=== PATIENT | female | born 1935 | race Caucasian/White ===

== ENCOUNTER 2020-02-12 12:31 | Outpatient (CLI) | payer MEDICARE, SELFPAY ==
--- NOTE | 2020-02-12 | ECHO_ITS ---
Patient Info Name: Gemini Blackburn Age: 84 years : 1935 Gender: Female Ht: 62 in Wt: 140 lbs BSA: 1.68 m2 HR: 63 bpm BP: 130 / 74 mmHg Heart Rhythm: Sinus Rhythm Technical Quality: Good Exam Date: 02/12/2020 1:08 PM Exam Location: [facility] Patient Status: Outpatient Admit Date: 02/12/2020 Staff Ordering Physician: Logan Vázquez MD Titrator: Kristofer Sandoval, KOJO, RT Attending Provider: Logan Vázquez MD Referring Physician: Kathie ROMAN; Exam Type: CA echo doppler color flow Study Info Indications Z85.3 - Personal history of malignant neoplasm of breast Complete two-dimensional, color flow and Doppler transthoracic echocardiogram is performed. Summary 1. Left ventricular chamber size and systolic function are normal with no regional wall motion abnormalities with a visually estimated ejection fraction of 60-65%. The biplane EF measurement was 60%. The global longitudinal strain was mildly decreased at-15%, consistent with mild early systolic dysfunction. Borderline criteria for diastolic dysfunction. Moderate left ventricular hypertrophy. 2. Right ventricular chamber dimension is mildly enlarged. 3. No significant valve disease. 4. Normal sinus rhythm. Left Ventricle Left ventricular chamber dimension is normal. Left ventricular systolic function is normal, estimated at 60-65%. There is moderately increased left ventricular wall thickness. Left ventricular septal wall motion is normal. The left ventricular diastolic function is indeterminate. Global longitudinal strain is mildly elevated at 15 %. Left ventricular chamber size and systolic function are normal with no regional wall motion abnormalities with a visually estimated ejection fraction of 60-65%. The biplane EF measurement was 60%. The global longitudinal strain was mildly decreased at-15%, consistent with mild early systolic dysfunction. Borderline criteria for diastolic dysfunction. Moderate left ventricular hypertrophy. Right Ventricle Right ventricular chamber dimension is mildly enlarged. Right ventricular systolic function is normal. Left Atria Left atrial chamber dimension is normal. Right Atria Right atrial chamber dimension is normal. Aortic Valve The aortic valve is trileaflet. There is no aortic valve sclerosis. There is no aortic valve stenosis. There is no aortic valve regurgitation. Pulmonic Valve The pulmonic valve is normal. There is no pulmonic valve stenosis. There is trace pulmonic regurgitation. Mitral Valve The mitral valve has normal leaflets. There is no mitral valve stenosis. There is trace mitral valve regurgitation. Tricuspid Valve The tricuspid valve leaflets are normal. There is no significant tricuspid valve stenosis. There is trace tricuspid valve regurgitation. No pulmonary hypertension, estimated pulmonary arterial systolic pressure is Empty. Pericardium/Pleural The pericardium appears normal. There is no pericardial effusion. Inferior Vena Cava Normal inferior vena cava with >50% collapse upon inspiration consistent with Empty right atrial pressure, 5 mmHg. Aorta The aortic root size at the sinus of Valsalva is mildly dilated. The prox ascending aorta size is normal. Left Ventricular Outflow Tract Name Value Normal LVOT 2D
== END 2020-02-12 12:32 | disposition home or self-care (01) ==
PROVIDERS: PCP Pediatrics; Visit Provider Internal Medicine Hematology & Oncology
DX: C50.411 Malignant neoplasm of upper-outer quadrant of right female breast (principal); Z17.1 Estrogen receptor negative status [ER-]; I51.7 Cardiomegaly
CPT/HCPCS: 93306

== ENCOUNTER 2020-10-08 09:40 | Outpatient (CLI) | payer MEDICARE, SELFPAY ==
--- NOTE | 2020-10-08 | ECHO_ITS ---
Patient Info Name: Gemini Blackburn Age: 85 years : 1935 Gender: Female Ht: 62 in Wt: 140 lbs BSA: 1.68 m2 HR: 49 bpm BP: 151 / 62 mmHg Technical Quality: Good Exam Date: 10/08/2020 10:21 AM Exam Location: [facility] Patient Status: Outpatient Admit Date: 10/08/2020 Staff Ordering Physician: Logan Vázquez MD Sample Stitcher: Jayde Thrasher RDCS Attending Provider: Logan Vázquez MD Referring Physician: Kathie ROMAN; Exam Type: CA echo doppler color flow Study Info Indications - PRE CHEMO Complete two-dimensional, color flow and Doppler transthoracic echocardiogram is performed. Summary 1. Complete two-dimensional, color flow and Doppler transthoracic echocardiogram is performed. 2. Left ventricular chamber dimension is normal. 3. Left ventricular systolic function is normal, estimated at 65-70%. 4. There is mildly increased left ventricular wall thickness. 5. The left ventricular diastolic function is grade I diastolic dysfunction. 6. E/e' 13 is mildly elevated. 7. Global longitudinal strain is normal at about -18.0%. 8. Left atrial chamber dimension is mildly enlarged. 9. Right atrial chamber dimension is mildly enlarged. 10. There is mild tricuspid valve regurgitation. 11. No pulmonary hypertension, estimated pulmonary arterial systolic pressure is 27 mmHg. 12. There is trace pulmonic regurgitation. Left Ventricle E/e' 13 is mildly elevated. Global longitudinal strain is normal at about -18.0%. Left ventricular chamber dimension is normal. Left ventricular systolic function is normal, estimated at 65-70%. There is mildly increased left ventricular wall thickness. The left ventricular diastolic function is grade I diastolic dysfunction. Right Ventricle Right ventricular chamber dimension is normal. Right ventricular systolic function is normal. Left Atria Left atrial chamber dimension is mildly enlarged. Right Atria Right atrial chamber dimension is mildly enlarged. Aortic Valve The aortic valve is trileaflet. There is no aortic valve stenosis. There is no aortic valve regurgitation. Pulmonic Valve There is trace pulmonic regurgitation. Mitral Valve There is no mitral valve stenosis. There is no mitral valve regurgitation. Tricuspid Valve There is mild tricuspid valve regurgitation. No pulmonary hypertension, estimated pulmonary arterial systolic pressure is 27 mmHg. Pericardium/Pleural There is no pericardial effusion. Inferior Vena Cava Normal inferior vena cava with >50% collapse upon inspiration consistent with normal right atrial pressure, 5 mmHg. Aorta The aortic root size at the sinus of Valsalva is normal. Left Ventricular Outflow Tract Name Value Normal LVOT 2D LVOT Diameter 2.0 cm LVOT Doppler LVOT Peak Gradient 4 mmHg LVOT Mean Gradient 2 mmHg LVOT VTI 25 cm LVOT VTI/AV VTI Ratio 1.1 LVOT Stroke Volume 80 ml LVOT CO 12.6 l/min LV
== END 2020-10-08 09:41 | disposition home or self-care (01) ==
LOC: ANHCARD 09:41
PROVIDERS: PCP Pediatrics; Visit Provider Internal Medicine Hematology & Oncology
DX: Z51.11 Encounter for antineoplastic chemotherapy (principal); I36.1 Nonrheumatic tricuspid (valve) insufficiency; I51.7 Cardiomegaly
CPT/HCPCS: 93306

== ENCOUNTER 2024-07-17 11:31 | Outpatient (CLI) | payer MEDICARE, OTHER, SELFPAY ==
[2024-07-17 11:48] LABS: Basophils Percent Auto 0.5 % (0.2-1.2); Eosinophils Absolute Auto 0.1 K/mm3 (0-0.3); Eosinophils Percent Auto 1.4 % (0-4.4); Hematocrit 43.4 % (37.0-47.0); Hemoglobin 14.3 g/dL (12.0-15.0); Immature Granulocyte Absolute 0.01 K/mm3 (0.00-0.031); Immature Granulocyte Percent A 0.2 % (0-0.5); Lymphocytes Absolute Auto 1.52 K/mm3 (0.9-3.2); Lymphocytes Percent Auto 26.5 % (18.3-44.2); Mean Corpuscular HGB Conc 32.9 g/dl (32-36); Mean Corpuscular Hemoglobin 31.2 pg (26-34); Mean Corpuscular Volume 94.6 fl (80-100); Mean Platelet Volume 9.9 fl (7.4-10.4); Monocytes Absolute Auto 0.5 K/mm3 (0.1-0.6); Monocytes Percent Auto 8.9 % (2.6-8.5); Neutrophils Absolute Auto 3.6 K/mm3 (1.3-6.7); Neutrophils Percent Auto 62.5 % (45.5-73.1); Platelet Count Result 302 k/mm3 (150-375); Red Blood Count 4.59 M/mm3 (4.2-5.4); Red Cell Distribution Width 12.6 % (11.5-14.5); White Blood Count 5.7 K/mm3 (4.5-10.0)
[2024-07-17 12:56] LABS: Alanine Aminotransferase 20 U/L (6-35); Albumin Level 4.6 g/dL (3.5-5.1); Alkaline Phosphatase 96 U/L (38-126); Anion Gap 11 mmol/L (4-12); Aspartate Amino Transferase 26 U/L (14-36); Bilirubin,Total 0.6 mg/dL (0.2-1.3); Blood Urea Nitrogen 22 mg/dL (7-17); Calcium 9.8 mg/dL (8.4-10.2); Carbon Dioxide 26 mmol/L (22-30); Chloride 103 mmol/L (98-107); Estimated Glomerular Filt Rate > 60; Glucose 90 mg/dL (65-110); Potassium 4.5 mmol/L (3.4-5.0); Sodium 140 mmol/L (137-145)
[2024-07-19 06:24] LABS: CA 15-3 9 U/mL (<32)
== END 2024-07-17 11:32 | disposition home or self-care (01) ==
LOC: ANHLAB 11:34
PROVIDERS: PCP Pediatrics; Visit Provider Internal Medicine Hematology & Oncology
DX: C50.411 Malignant neoplasm of upper-outer quadrant of right female breast (principal); Z17.1 Estrogen receptor negative status [ER-]
CPT/HCPCS: 36415; 80053; 85025; 86300

== ENCOUNTER 2025-04-21 10:58 | Outpatient (CLI) | payer MEDICARE, SELFPAY ==
--- OUTSIDE RECORDS SUMMARY | 2025-04-21 11:13 | XMS_ITS | Clinical Summary ---
Author Organization [facility] Address [address] [place] [address] Care Team Providers Care Desktop Publishing Associate Name Role Phone Shashank Underwood MD Primary Care Provider Allergies No known active allergies Medications levothyroxine 112 MCG tablet Take 112 mcg by mouth every morning. Active PARoxetine 10 MG tablet paroxetine 10 mg tablet Active Encounters Date Type Department Care Team Description 04/10/2025 10:00 AM CDT - 04/10/2025 11:59 PM T Hospital Encounter [address] [place] [address] Shashank Underwood MD McClenahan, Krystal M, PT Discharge Disposition: Home or Self Care (Routine Discharge) 04/10/2025 Travel 04/06/2025 10:00 AM CDT - 04/06/2025 11:59 PM T Hospital Encounter [address] [place] [address] Shashank Underwood MD Timmermann, Candice P, TILER Discharge Disposition: Home or Self Care (Routine Discharge) 04/06/2025 Travel 04/02/2025 9:56 AM CDT - 04/02/2025 11:59 PM CDT Hospital Encounter [facility] [address] [facility] [place] [address] Shashank Underwood MD Hays, Michelle, TILER Discharge Disposition: Home or Self Care (Routine Discharge) 04/02/2025 Travel 03/27/2025 10:26 AM CDT - 03/27/2025 11:59 PM CDT Hospital Encounter [facility] [address] [facility] [place] [address] Shashank Underwood MD Davidson, Brooke M, TILER Discharge Disposition: Home or Self Care (Routine Discharge) 03/27/2025 Travel 03/24/2025 10:17 AM CDT - 03/24/2025 11:59 PM CDT Hospital Encounter [facility] [address] [facility] [place] [address] Shashank Underwood MD Timmermann, Candice P, TILER Discharge Disposition: Home or Self Care (Routine Discharge) 03/24/2025 Travel 03/20/2025 1:28 PM CDT - 03/20/2025 11:59 PM CDT Hospital Encounter [facility] [address] [facility] [place] [address] Shashank Underwood MD Davidson, Brooke M, TILER Discharge Disposition: Home or Self Care (Routine Discharge) 03/20/2025 Travel 03/18/2025 10:30 AM CDT - 03/18/2025 11:59 PM CDT Hospital Encounter [facility] [address] [facility] [place] [address] Shashank Underwood MD Timmermann, Candice P, TILER Discharge Disposition: Home or Self Care (Routine Discharge) 03/18/2025 Travel 03/13/2025 10:54 AM CDT - 03/13/2025 11:59 PM CDT Hospital Encounter [facility] [address] [facility] [place] [address] Shashank Underwood, Sophia Pike, TILER Back Pain Discharge Disposition: Home or Self Care (Routine Discharge) 03/13/2025 Travel 03/11/2025 2:48 PM CDT - 03/11/2025 11:59 PM CDT Hospital Encounter [facility] [address] [facility] [place] [place] [address] Siefken, MD Fransisco Naidu Krystal M, PT Discharge Disposition: Home or Self Care (Routine Discharge) 03/11/2025 Travel 03/03/2025 11:25 AM CDT - 03/03/2025 11:59 PM CDT Hospital Encounter [facility] [address] [place] [address] Kan Andrade, [employer] 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 Discharge Disposition: Home or Self Care (Routine Discharge) 03/03/2025 Travel from Last 3 Months Social History Tobacco Use Types Packs/Day Years Used Date Smoking Tobacco: Never Smokeless Tobacco: Never Tobacco Cessation:Counseling Given: No Comments:no Alcohol Use Standard Drinks/Week Comments Never 0 (1 standard drink = 0.6 oz pur e alcohol) PHQ-2 Answer Date Recorded PHQ-2 Score - If the patient scores above 3, please move on to questions 3-9 2 03/06/2022 Comments No Sex and Gender Information Value Date Recorded Sex Assigned at Not on file Legal Sex Female 9:28 PM CDT Gender Identity Not on file Sexual Orientation Not on file Last Filed Vital Signs Vital Sign Reading Time Taken Comments Blood Pressure 149/53 03/06/2022 9:50 AM CDT Pulse 51 03/06/2022 9:50 AM CDT Temperature 36.2 C (97.2 F) 03/06/2022 9:50 AM CDT Respiratory Rate 18 03/06/2022 9:50 AM CDT Oxygen Saturation 96% 03/06/2022 9:50 AM CDT Inhaled Oxygen Concentration - - Weight 58.8 kg (129 lb 9.6 oz) 03/06/2022 9:50 A M CDT Height 157.5 cm (5' 2) 03/06/2022 9:50 AM CDT Body Mass Index 23.7 03/06/2022 9:50 AM CDT Plan of Treatment Health Maintenance Due Date Last Done Comments Annual Medicare Wellness Visit 2001 Pneumococcal Vaccine: 50+ Years (2 of 2 - PCV) 10/03/2007 10/03/2006 RSV Immunization or 60+ Years (1 - 1-dose 75+ series) 2011 Zoster Vaccines (2 of 3) 10/22/2011 011, 08/27/2007 COVID-19 Vaccine (2 - 2023-2 5 season) 2024 01/04/2021 DTaP, Tdap and Td Vaccines ( 3 - Td or Tdap) 05/09/2033 05/09/2023, 08/28/2014, 06/02/1998 Meningococcal B Vaccine Aged Out No l onger eligible based on patient's age to complete this topic Meningococcal Vaccine Aged Out No jaky tiffanie eligible based on patient's age to complete this topic RSV Immunizations Under 20 Months Aged Out No longer eligible b ased on patient's age to complete this topic Procedures Procedure Name Priority Date/Time Associated Diagnosis Comments XR SI JOINTS Routine 03/03/2025 12:05 PM CDT Sacro-iliac pain XR PELVIS 1 OR 2 VIEWS Routine 03/03/2025 12:05 PM CDT Sacro-iliac pain XR LUMB SPINE 3V Routine 03/03/2025 12:0 5 PM CDT Sacro-iliac pain from Last 3 Months Results * XR SI JOINTS (03/03/2025 12:05 PM CDT) Anatomical Region Laterality Modality Pelvis Computed Tomogra phy 03/03/2025 12:2 0 PM CDT Impressions 03/03/2025 12:23 PM CDT IMPRESSION: 1. No acute findings Ordered By: KAN ANDRADE Interpreted By: Gracy Ybarra, 03/03/2025 12:20 PM Narrative 03/03/2025 12:23 PM [address]T [address] [place] [address] IMAGING STUDIES: XR SI JOINTS DATE: 03/03/2025 11:48 AM COMPARISON: CT abdomen and pelvis of 02/04/2021 CLINICAL HISTORY: si pain . Fall. FINDINGS: There is no evidence of acute fracture, dislocation, or osseous erosion. Osteopenia limits exam No radiopaque foreign bodies or abnormal soft tissue calcifications noted. Mild degenerative change in both sacroiliac joints. No significant sclerosis. Procedure Note Genaro Ybarra MD - 03/03/[address] [place] [address] IMAGING STUDIES: XR SI JOINTS DATE: 03/03/2025 11:48 AM COMPARISON: CT abdomen and pelvis of 02/04/2021 CLINICAL HISTORY: si pain . Fall. FINDINGS: There is no evidence of acute fracture, dislocation, or osseous erosion.Osteopenia limits exam No radiopaque foreign bodies or abnormal soft tissue calcificationsnoted. Mild degenerative change in both sacroiliac joints. No significantsclerosis. IMPRESSION: 1. No acute findings Ordered By: KAN ANDRADE Interpreted By: Gracy Ybarra, 03/03/2025 12:20 PM Kan Andrade 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 GENERAL IMAGING Final Resu lt * XR PELVIS 1 OR 2 VIEWS (03/03/2025 12:05 PM CDT) Anatomical Region Laterality Modality Pelvis Computed Tomogra phy 03/03/2025 12:1 9 PM CDT Impressions 03/03/2025 12:20 PM CDT IMPRESSION: 1. No acute findings Ordered By: KAN ANDRADE Interpreted By: Gracy bYarra, 03/03/2025 12:19 PM Narrative 03/03/2025 12:20 PM CDT [address] [place] [address] IMAGING STUDIES: XR PELVIS 1 OR 2 VIEWS DATE: 03/03/2025 11:48 AM COMPARISON: November 24, 2013 CLINICAL HISTORY: si pain . Fall FINDINGS: There is no evidence of acute fracture, dislocation, or osseous erosion. Osteopenia limits exam. No radiopaque foreign bodies or abnormal soft tissue calcifications noted. Partially visualized right hip prosthesis is grossly intact. Normal contour to the left femoral head. Mild degenerative change in the left hip and both sacroiliac joints. Procedure Note Genaro Ybarra MD - 03/03/[address] [place] [address] IMAGING STUDIES: XR PELVIS 1 OR 2 VIEWS DATE: 03/03/2025 11:48 AM COMPARISON: November 24, 2013 CLINICAL HISTORY: si pain . Fall FINDINGS: There is no evidence of acute fracture, dislocation, or osseous erosion.Osteopenia limits exam. No radiopaque foreign bodies or abnormal soft tissue calcificationsnoted. Partially visualized right hip prosthesis is grossly intact. Normalcontour to the left femoral head. Mild degenerative change in the left hip and both sacroiliac joints. IMPRESSION: 1. No acute findings Ordered By: KAN ANDRADE Interpreted By: Gracy Ybarra, 03/03/2025 12:19 PM us Kan Andrade 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 GENERAL IMAGING Final Resu lt * XR LUMB SPINE 3V (03/03/2025 12:05 PM CDT) Anatomical Region Laterality Modality Spine Computed Tomogra phy 03/03/2025 12:1 6 PM CDT Impressions 03/03/2025 12:19 PM CDT IMPRESSION: 1. No acute findings. Degenerative changes as above Ordered By: KAN ANDRADE Interpreted By: Gracy Ybarra, 03/03/2025 12:16 PM Narrative 03/03/2025 12:19 PM CDT [address] [place] [address] IMAGING STUDIES: XR LUMB SPINE 3V DATE: 03/03/2025 11:48 AM COMPARISON: CT abdomen of 02/04/2021 CLINICAL HISTORY: si pain . Fall. Pain. FINDINGS: No evidence of acute fracture or dislocation. Osteopenia limits exam Vertebral body heights are grossly well-maintained. Stable loss of disc space height at L2-3 and L4-5. Stable minimal grade 1 anterior spondylolisthesis of L3 on L4. . No paraspinal lesions. Atherosclerotic aorta. Mild levoconvex curvature of mid lumbar spine Procedure Note Genaro Ybarra MD - 03/03/[address] [place] [address] IMAGING STUDIES: XR LUMB SPINE 3V DATE: 03/03/2025 11:48 AM COMPARISON: CT abdomen of 02/04/2021 CLINICAL HISTORY: si pain . Fall. Pain. FINDINGS: No evidence of acute fracture or dislocation. Osteopenia limits exam Vertebral body heights are grossly well-maintained. Stable loss of discspace height at L2-3 and L4-5. Stable minimal grade 1 anterior spondylolisthesis of L3 on L4. . No paraspinal lesions. Atherosclerotic aorta. Mild levoconvex curvature ofmid lumbar spine IMPRESSION: 1. No acute findings. 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 anation Advance Directives and Living Will 11/14/2021 12:00 AM HCPOA Advance Directives and Living Will 11/14/2021 12:00 AM LIVING WILL Advance Directives and Living Will 02/04/2021 12:00 AM HCPOA Advance Directives and Living Will 02/04/2021 12:00 AM LIVING WILL Advance Directives and Living Will 11/12/2020 12:00 AM HCPOA Advance Directives and Living Will 11/12/2020 12:00 AM LIVING WILL Advance Directives and Living Will 12/31/2019 12:00 AM HCPOA Advance Directives and Living Will 12/31/2019 12:00 AM LIVING WILL Advance Directives and Living Will 12/30/2019 12:00 AM HCPOA Advance Directives and Living Will 12/30/2019 12:00 AM LIVING WILL Advance Directives and Living Will 12/23/2019 12:00 AM HCPOA Advance Directives and Living Will 12/23/2019 12:00 AM LIVING WILL Advance Directives and Living Will 12/19/2019 12:00 AM HCPOA Advance Directives and Living Will 12/19/2019 12:00 AM LIVING WILL Advance Directives and Living Will 06/25/2019 12:00 AM HCPOA Advance Directives and Living Will 06/25/2019 12:00 AM LIVING WILL Advance Directives and Living Will 12/24/2018 12:00 AM HCPOA Advance Directives and Living Will 12/24/2018 12:00 AM LIVING WILL Advance Directives and Living Will 10/28/2018 12:00 AM HCPOA Advance Directives and Living Will 10/28/2018 12:00 AM LIVING WILL Advance Directives and Living Will 08/13/2018 12:00 AM HCPOA Advance Directives and Living Will 08/13/2018 12:00 AM LIVING WILL Advance Directives and Living Will 08/09/2018 12:00 AM HCPOA Advance Directives and Living Will 08/09/2018 12:00 AM LIVING WILL Advance Directives and Living Will 07/15/2018 12:00 AM HCPOA Advance Directives and Living Will 07/15/2018 12:00 AM LIVING WILL Advance Directives and Living Will 05/07/2018 12:00 AM HCPOA Advance Directives and Living Will 05/07/2018 12:00 AM LIVING WILL Advance Directives and Living Will 01/04/2018 12:00 AM HCPOA Advance Directives and Living Will 01/04/2018 12:00 AM LIVING WILL Advance Directives and Living Will 10/31/2017 12:00 AM HCPOA Advance Directives and Living Will 10/31/2017 12:00 AM LIVING WILL Advance Directives and Living Will 10/02/2017 12:00 AM HCPOA Advance Directives and Living Will 10/02/2017 12:00 AM LIVING WILL Advance Directives and Living Will 03/21/2017 12:00 AM HCPOA Advance Directives and Living Will 03/21/2017 12:00 AM LIVING WILL Advance Directives and Living Will 01/22/2017 12:00 AM HCPOA Advance Directives and Living Will 01/22/2017 12:00 AM LIVING WILL Advance Directives and Living Will 12/31/2016 12:00 AM HCPOA Advance Directives and Living Will 12/31/2016 12:00 AM LIVING WILL Advance Directives and Living Will 12/08/2016 12:00 AM HCPOA Advance Directives and Living Will 12/08/2016 12:00 AM LIVING WILL Advance Directives and Living Will 12/03/2015 12:00 AM HCPOA Advance Directives and Living Will 12/03/2015 12:00 AM LIVING WILL Advance Directives and Living Will 09/24/2015 12:00 AM HCPOA Advance Directives and Living Will 09/24/2015 12:00 AM LIVING WILL Advance Directives and Living Will 07/07/2015 12:00 AM HCPOA Advance Directives and Living Will 07/07/2015 12:00 AM LIVING WILL Advance Directives and Living Will 10/30/2014 12:00 AM ADVANCED DIRECTIVES Advance Directives and Living Will 10/30/2014 12:00 AM HCPOA Advance Directives and Living Will 10/30/2014 12:00 AM LIVING WILL Advance Directives and Living Will 10/05/2014 12:00 AM ADVANCED DIRECTIVES Advance Directives and Living Will 10/05/2014 12:00 AM HCPOA Advance Directives and Living Will 10/05/2014 12:00 AM LIVING WILL Advance Directives and Living Will 10/02/2014 12:00 AM ADVANCED DIRECTIVES Advance Directives and Living Will 10/02/2014 12:00 AM HCPOA Advance Directives and Living Will 10/02/2014 12:00 AM LIVING WILL Advance Directives and Living Will 10/01/2014 12:00 AM ADVANCED DIRECTIVES Advance Directives and Living Will 10/01/2014 12:00 AM HCPOA Advance Directives and Living Will 10/01/2014 12:00 AM LIVING WILL Advance Directives and Living Will 09/04/2014 12:00 AM ADVANCED DIRECTIVES Advance Directives and Living Will 09/04/2014 12:00 AM HCPOA Advance Directives and Living Will 09/04/2014 12:00 AM LIVING WILL Advance Directives and Living Will 05/25/2014 12:00 AM ADVANCED DIRECTIVES Advance Directives and Living Will 05/25/2014 12:00 AM HCPOA Advance Directives and Living Will 05/25/2014 12:00 AM LIVING WILL Advance Directives and Living Will 05/19/2014 12:00 AM ADVANCED DIRECTIVES Advance Directives and Living Will 05/19/2014 12:00 AM HCPOA Advance Directives and Living Will 05/19/2014 12:00 AM LIVING WILL Advance Directives and Living Will 11/24/2013 12:00 AM ADVANCED DIRECTIVES Advance Directives and Living Will 11/24/2013 12:00 AM HCPOA Advance Directives and Living Will 11/24/2013 12:00 AM LIVING WILL Advance Directives and Living Will 11/19/2013 12:00 AM ADVANCED DIRECTIVES Advance Directives and Living Will 11/19/2013 12:00 AM HCPOA Advance Directives and Living Will 11/19/2013 12:00 AM LIVING WILL Advance Directives and Living Will 08/22/2013 12:00 AM ADVANCED DIRECTIVES Advance Directives and Living Will 08/22/2013 12:00 AM HCPOA Advance Directives and Living Will 08/22/2013 12:00 AM LIVING WILL Advance Directives and Living Will 08/01/2013 12:00 AM ADVANCED DIRECTIVES Advance Directives and Living Will 08/01/2013 12:00 AM HCPOA Advance Directives and Living Will 08/01/2013 12:00 AM LIVING WILL Advance Directives and Living Will 01/17/2013 12:00 AM ADVANCED DIRECTIVES Advance Directives and Living Will 01/17/2013 12:00 AM HCPOA Advance Directives and Living Will 01/17/2013 12:00 AM LIVING WILL Advance Directives and Living Will 01/07/2013 12:00 AM ADVANCED DIRECTIVES Advance Directives and Living Will 01/07/2013 12:00 AM HCPOA Advance Directives and Living Will 01/07/2013 12:00 AM LIVING WILL Advance Directives and Living Will 01/06/2013 12:00 AM ADVANCED DIRECTIVES Advance Directives and Living Will 01/06/2013 12:00 AM HCPOA Advance Directives and Living Will 01/06/2013 12:00 AM LIVING WILL Advance Directives and Living Will 12/02/2012 12:00 AM HCPOA Advance Directives and Living Will 12/02/2012 12:00 AM LIVING WILL Advance Directives and Living Will 12/02/2012 12:00 AM HCPOA Advance Directives and Living Will 12/02/2012 12:00 AM LIVING WILL Advance Directives and Living Will 11/30/2012 12:00 AM HCPOA Advance Directives and Living Will 11/30/2012 12:00 AM LIVING WILL Advance Directives and Living Will 08/07/2012 12:00 AM HCPOA Advance Directives and Living Will 08/07/2012 12:00 AM LIVING WILL Advance Directives and Living Will 07/24/2012 12:00 AM HCPOA Advance Directives and Living Will 07/24/2012 12:00 AM LIVING WILL Advance Directives and Living Will 06/01/2012 12:00 AM HCPOA Advance Directives and Living Will 06/01/2012 12:00 AM LIVING WILL Advance Directives and Living Will 06/01/2012 12:00 AM HCPOA Advance Directives and Living Will 06/01/2012 12:00 AM LIVING WILL Advance Directives and Living Will 03/02/2012 12:00 AM HCPOA Advance Directives and Living Will 03/02/2012 12:00 AM LIVING WILL Advance Directives and Living Will 01/20/2012 12:00 AM HCPOA Advance Directives and Living Will 01/20/2012 12:00 AM LIVING WILL Advance Directives and Living Will 12/20/2011 12:00 AM ADVANCED DIRECTIVES Advance Directives and Living Will 12/20/2011 12:00 AM HCPOA Advance Directives and Living Will 12/20/2011 12:00 AM LIVING WILL Care Teams Desktop Publishing Associate Relationship Specialty Start Date End Date Shashank Underwood MD [address] [place] [address] PCP - General PEDIATRICS 02/09/22
--- OUTSIDE RECORDS SUMMARY | 2025-04-21 11:14 | XMS_ITS | Data Portability ---
Author Organization JAYDE - [facility], PXin, [facility] Address [address] [place] [address] Assessment Encounter Date Assessment Date Assessment LastModified by Organization Details LastModified Time 03/09/2023 03/09/2023 Fill thyroid medication when blood work is back. [email or web address] Not available 03/09/2023 13:30:59 03/14/2024 03/14/2024 GI Effects Stool test - one day test Britni NutriEval test - urine test only. No blood test [email or web address] Not available 03/14/2024 14:07:56 Plan of Treatment Reminders Order Date Submit Date Provider Last Modified By Organization Details Last Modified Time Details Appointments None recorded. Lab vitamin D, 25-hydroxy, total, serum 2024 025 [employer] [facility], [address], [place], [address], 5 08:46:14 CMP, serum or plasma 2024 025 [facility] [address], [place], [address], 5 08:46:14 CBC w/ auto diff 2024 025 [facility], [place], [address], 5 08:46:14 lipid panel, serum 2024 025 [facility], [place], [address], 5 08:46:14 CRP, high sensitivity , serum or plasma 2024 025 [employer] [facility], [address], [address], [place], [address], 5 08:46:14 TSH, serum or plasma 2024 025 [employer] [facility], [address], [place], [address], 5 08:46:14 T4, free, serum 2024 025 [employer] [facility], [facility] [address], [place], [address], 5 08:46:14 T3, free, serum or plasma 2024 025 [facility], [facility] [address], [address], [place], [address], 5 08:46:14 vitamin B12 + folate, serum or blood 2024 025 Service Seeking [facility], [facility] [address], [address], [place], [address], 5 08:46:14 iron + TIBC + ferritin, serum 2023 024 Service [facility], [address], [address], [place], [address], 4 07:26:32 vitamin D, 25-hydroxy, total, serum 2023 024 [employer] [facility], [address], [place], [address], 4 07:26:33 lipid panel, serum 2023 024 amalic [facility], [address], [address], [place], [address], 4 07:26:32 CRP, high sensitivity , serum or plasma 2023 024 [facility]alic [facility], [address], [address], [place], [address], 4 07:26:33 CMP, serum or plasma 2023 024 [facility]alic [facility], [address], [address] [place], [place], [address], 4 07:26:33 TSH, serum or plasma 2023 024 amalic Not available 4 07:26:32 T4, free, serum 2023 024 amalic Not available 4 07:26:32 T3, free, serum or plasma 2023 024 amalic Not available 4 07:26:32 TSH, serum or plasma 2022 023 [employer] [facility], [address], [address], [place], [address], 3 09:53:32 T4, free, serum 2022 023 [employer] [facility], [address], [address], [place], [address], 3 09:53:33 T3, free, serum or plasma 2022 023 [employer]Codota [facility], [address], [address], [place], [address], 3 22:01:17 lipid panel, serum 2022 023 [employer] [facility], [address], [address], [place], [address], 3 22:01:17 CRP, high sensitivity , serum or plasma 2022 023 [employer] [facility], [address], [address] [address], [place], [address], 3 09:53:31 omega 3 fatty acids, quantitativ e, serum (OBS) 2022 023 [facility], [address], [address], [place], [address], 3 22:01:17 omega 6 fatty acids, quantitativ e, serum (OBS) 2022 023 [facility], [address], [address] [address], [place], [address], 3 22:01:17 vitamin B12 + folate, serum or blood 2022 023 [employer] [facility], [address], [place], [address], 3 09:53:34 iron + TIBC + ferritin, serum 2022 023 [employer] [facility], [address], [address], [place], [address], 3 09:53:34 vitamin B12 + folate, serum or blood 2021 022 [employer] [facility], [address], [place], [address], 2 03:55:20 iron + TIBC + ferritin, serum 2021 022 [employer] [facility], [address], [place], [address], 2 03:55:20 lipid panel, serum 2021 [facility], [address], [address], [place], [address], 08:08:40 CBC w/ auto diff 2021 [facility], [address], [address], [place], [address], 03:55:20 CMP, serum or plasma 2021 [facility], [address], [address], [place], [address], 03:55:18 CRP, high sensitivity , serum or plasma 2021 [employer] [facility], [address], [address] [place], [place], [address], 03:55:17 vitamin D, 25-hydroxy, total, serum 2021 [employer] [facility], [address], [address], [place], [address], 03:55:21 HbA1c (hemoglobin A1c), blood 2021 [facility], [address], [address] [place], [place], [address], 03:55:21 TSH, serum or plasma 2021 [employer] [facility], [address], [address], [place], [address], 03:55:18 T4, free, serum 2021 [facility], [address], [place], [address], 06/10/202 2 03:55:19 T3, free, serum or plasma 2021 022 [facility] [facility], [address], [place], [address], 2 08:08:40 TSH, serum or plasma 2020 021 YONI Not available 03:44:01 T3, free, serum or plasma 2020 021 smimms Not available 09:39:37 T4, free, serum 2020 YONI Not available 03:44:02 lipid panel, serum 2020 021 smimms Not available 09:39:38 CMP, serum or plasma 2020 021 YONI Not available 03:44:00 hemoglobin A1c, QN, blood 2020 021 smimms Not available 09:39:38 C reactive protein, QN, serum or plasma 2020 021 smimms Not available 09:39:38 iron + TIBC + ferritin, serum 2020 021 YONI Not available 03:44:01 vitamin B12 + folate, serum or blood 2020 021 YONI Not available 03:44:02 Referral None recorded. Procedures None recorded. Surgeries None recorded. Imaging None recorded. Medication Orders None recorded. Patient TargetsNo targets recorded. Patient Instructions Encounter Date Encounter Id Patient Instructions Last Modified By Organization Details Last Modified Time 02/25/2021 [id number] Orthobiotic 1 capsule daily Vitalzymes Chewable 1 with each meal cwillbrand Not available 02/25/2021 12:37:06 03/30/2022 [id number] Reduce Magnesium capsule to 1 daily in the evening Increase folate to 1000mcg daily in the morning Vital Proteins Collagen Peptides - 1 scoop daily Continue GrapeSeed Extract 300mg daily cwillbrand Not available 03/30/2022 12:59:43 03/09/2023 [id number] Yvonne Aparicio White - Classical Stretch on PBS every morning cwillbrand Not available 03/09/2023 13:20:22 04/09/2025 [id number] Biocidin 5 drops twice daily until the bottle is finished. Switch your magnesium at lunch to Reacted Multimineral 2 with lunch. Continue with Magnesium 2 in the morning cwillbrand Not available 04/09/2025 15:10:40 Reason for Referral None Reported. Results Created Date Observation Date Name Description Value Unit Range Abnormal Flag Note LastModifiedBy Organization Detail LastModifiedTime 02/26/20 21 02/25/2021 CRP, high sensi tivit y, serum or plasm a hscrp 1.38 mg/L <=2.99 Risk Accor ding To AHA/C DC Guide lines : < 1.0 mg/L Low Cardi ovasc ular Risk 1.0-3 .0 mg/L [place] Cardi ovasc ular Risk > 3.0 mg/L High Cardi ovasc ular Risk > 10.0 mg/L Acute Infla mmati on Not Available [facility] (Lab) [address], [place], [address], 02/26/2021 03:43:59 02/26/2002/25/2021 lipid panel , blood total cholesterol 217 mg/dL 0-199 high Not Available [facility] (Lab) [address] [place], [address], 02/26/2021 03:44:00 02/26/2002/25/2021 lipid panel , blood triglyceride s 73 mg/dL 0-150 NCEP Refer ence Value s for Trigl yceri coty: Alaina l: <150 mg/dL Borde rline High: 150 - 199 mg/dL High: 200 - 499 mg/dL Very High: >/= 500 mg/dL Not Available [facility] (Lab) [address], [place], [address], 02/26/2021 03:44:00 02/26/2002/25/2021 lipid panel , blood HDL cholesterol 73 mg/dL 40-240 Not Available [facility] (Lab) [address], [place], [address], 02/26/2021 03:44:00 02/26/20 21 02/25/2021 lipid panel , blood LDL cholesterol 129 mg/dL 0-99 high Cutof f value s recom deep d by the Natio nal Jessie stero l Educa tion Progr am: HERSON ABLE: Jessie stero l <200 mg/dL LDL <100 mg/dL BORDE RLINE : Jessie stero l 200-2 39 mg/dL LDL 101-1 59 mg/dL HIGHE R RISK: Jessie stero l >240 mg/dL LDL >160 mg/dL , HDL <40 mg/dL Not Available [facility] (Lab) [address], [place], [address], 02/26/2021 03:44:00 02/26/2002/25/2021 lipid panel , blood non-HDL cholesterol 144 mg/dL 0-129 high A reaso nable goal for non-H DL jessie stero l is one that is 30 mg/dL highe r than the LDL jessie stero l goal. Not Available [facility] (Lab) [address], [place], [address], 02/26/2021 03:44:00 02/26/20 21 02/25/2021 lipid panel , blood chol/HDL ratio 3.0 . 0.0-5. 0 Not Available [facility] (Lab) [address] [place], [address], 02/26/2021 03:44:00 02/26/2002/25/2021 CMP, serum or plasm a sodium 142 mmol/ L 136-14 5 Not Available [facility] (Lab) [address] [place], [address], 02/26/2021 03:44:00 02/26/20 21 02/25/2021 CMP, serum or plasm a potassium 4.3 mmol/ L 3.5-5. 3 Not Available [facility] (Lab) [address], [place], [address], 02/26/2021 03:44:00 02/26/20 21 02/25/2021 CMP, serum or plasm a chloride 104 mmol/ L 98-107 Not Available [facility] (Lab) [address] [place], [address], 02/26/2021 03:44:00 02/26/20 21 02/25/2021 CMP, serum or plasm a carbon dioxide 26 mmol/ L 23-31 Not Available [facility] (Lab) [address], [place], [address], 02/26/2021 03:44:00 02/26/20 21 02/25/2021 CMP, serum or plasm a anion gap 12 mmol/ L 8-16 Not Available [facility] (Lab) [address] [place], [address], 02/26/2021 03:44:00 02/26/20 21 02/25/2021 CMP, serum or plasm a blood urea nitrogen 18 mg/dL 8-23 Not Available [facility] (Lab) [address], [place], [address], 02/26/2021 03:44:00 02/26/20 21 02/25/2021 CMP, serum or plasm a creatinine 0.70 mg/dL (based on legal sex) .5-1.2 Not Available [facility] (Lab) [address] [place], [address], 02/26/2021 03:44:00 02/26/2002/25/2021 CMP, serum or plasm a GFR () 97 mL/mi n/1.7 3_m2 60-300 Not Available [facility] (Lab) [address] [place], [address], 02/26/2021 03:44:00 02/26/20 21 02/25/2021 CMP, serum or plasm a GFR (others) 80 mL/mi n/1.7 3_m2 60-300 Not Available [facility] (Lab) [address] [place], [address], 02/26/2021 03:44:00 02/26/20 21 02/25/2021 CMP, serum or plasm a calcium 10.1 mg/dL 8.8-10 .5 Not Available [facility] (Lab) [address], [place], [address], 02/26/2021 03:44:00 02/26/20 21 02/25/2021 CMP, serum or plasm a glucose 84 mg/dL 70-99 Not Available [facility] (Lab) [address] [place], [address], 02/26/2021 03:44:00 02/26/2002/25/2021 CMP, serum or plasm a protein, total 6.8 g/dL 6.0-8. 3 Not Available [facility] (Lab) [address] [place], [address], 02/26/2021 03:44:00 02/26/2002/25/2021 CMP, serum or plasm a albumin 4.7 g/dL 3.5-5. 0 Not Available [facility] (Lab) [address] [place], [address], 02/26/2021 03:44:00 02/26/2002/25/2021 CMP, serum or plasm a ALT 12 units /L 9-43 Not Available [facility] (Lab) [address] [place], [address], 02/26/2021 03:44:00 02/26/2002/25/2021 CMP, serum or plasm a alkaline phosphatase 110 units /L 35-129 Not Available [facility] (Lab) [address] [place], [address], 02/26/2021 03:44:00 02/26/20 21 02/25/2021 CMP, serum or plasm a AST 18 units /L (based on docume nted legal sex) 11-32 Not Available [facility] (Lab) [address], [place], [address], 02/26/2021 03:44:00 02/26/20 21 02/25/2021 CMP, serum or plasm a bilirubin, total 0.6 mg/dL 0.0-1. 0 Not Available [facility] (Lab) [address], [place], [address], 02/26/2021 03:44:00 02/26/20 21 02/25/2021 free T3, quant itati ve, dialy sis serum or plasm a T3, free 2.7 pg/mL 2.0-4. 4 Not Available [facility] (Lab) [address] [place], [address], 02/26/2021 03:44:01 02/26/20 21 02/25/2021 iron + TIBC + pennie tin, serum iron 82 ug/dL (based on docume nted legal sex) 37-145 Not Available [facility] (Lab) [address] [place], [address], 02/26/2021 03:44:01 02/26/20 21 02/25/2021 iron + TIBC + pennie tin, serum transferrin 222 mg/dL 200-36 0 Not Available [facility] (Lab) [address] [place], [address], 02/26/2021 03:44:01 02/26/20 21 02/25/2021 iron + TIBC + pennie tin, serum ferritin 173 NG/mL 13-400 Not Available [facility] (Lab) [address] [place], [address], 02/26/2021 03:44:01 02/26/20 21 02/25/2021 iron + TIBC + pennie tin, serum calculated TIBC 311 ug/dL 250-46 0 Not Available [facility] (Lab) [address] [place], [address], 02/26/2021 03:44:01 02/26/20 21 02/25/2021 iron + TIBC + pennie tin, serum iron saturation 26 % 20-55 Not Available [facility] (Lab) [address] [place], [address], 02/26/2021 03:44:01 02/26/20 21 02/25/2021 TSH, serum or plasm a TSH 0.73 uIU/m L 0.30-5 .00 Not Available [facility] (Lab) [address], [place], [address], 02/26/2021 03:44:01 02/26/20 21 02/25/2021 T4, free, serum T4, free 1.32 NG/dL 0.80-1 .80 Not Available [facility] (Lab) [address] [place], [address], 02/26/2021 03:44:02 02/26/20 21 02/25/2021 vitam in B12 + folat e, serum or blood vitamin B12 969 pg/mL 232-1, 245 Not Available [facility] (Lab) [address] [place], [address], 02/26/2021 03:44:02 02/26/20 21 02/25/2021 vitam in B12 + folat e, serum or blood folate, serum >20.0 NG/mL 5.2-20 high Not Available [facility] (Lab) [address] [place], [address], 02/26/2021 03:44:02 02/26/20 21 02/25/2021 HbA1c (hemo globi n A1c), blood hemoglobin A1C 5.3 % 0-5.6 The Ameri can Diabe sage [employer] iatio n recom mends that a prima ry goal of thera py kate [place] be a HBA1C of < 7% and that physi cians shoul d reeva luate the treat ment regim en in patie nts with HBA1C value s consi stent ly > 8%. <5.7% Alaina l 5.7 - 6.4% Incre ased risk for diabe sage >=6.5 % Diagn ostic of diabe sage <7.0% Goal of thera py >8.0% Actio n sugge sted Not Available [facility] (Lab) [address], [place], [address], 02/26/2021 03:44:03 12/21/19 22 12/21/2021 T3, FREE T3, free 2.8 pg/mL 2.3-4. 2 normal Not Available [facility] [address] [place], [address], 12/21/2021 06:46:40 03/30/20 22 03/30/2022 CRP, HIGH SENSI TIVIT Y (HSCR P) C-reactive protein, high sensitivity 1.38 mg/L 0.00-3 .00 Risk Accor ding To AHA/C DC Guide lines : < 1.0 mg/L Low Cardi ovasc ular Risk 1.0-3 .0 mg/L [place] Cardi ovasc ular Risk > 3.0 mg/L High Cardi ovasc ular Risk > 10.0 mg/L Acute Infla mmati on Not Available [facility] (Lab) [address], [place], [address], 03/31/2022 03:55:16 03/30/20 22 03/30/2022 LIPID PANEL ,AMA (LDL- CALC) total cholesterol 201 mg/dL 0-199 high Not Available [facility] (Lab) [address], [place], [address], 03/31/2022 03:55:17 03/30/20 22 03/30/2022 LIPID PANEL ,AMA (LDL- CALC) triglyceride s 74 mg/dL 0.00-1 50.00 NCEP Refer ence Value s for Trigl yceri coty: Alaina l: <150 mg/dL Borde rline High: 150 - 199 mg/dL High: 200 - 499 mg/dL Very High: >/= 500 mg/dL Not Available [facility] (Lab) [address], [place], [address], 03/31/2022 03:55:17 03/30/20 22 03/30/2022 LIPID PANEL ,AMA (LDL- CALC) HDL cholesterol 71 mg/dL >40 Not Available [facility] (Lab) [address], [place], [address], 03/31/2022 03:55:17 03/30/20 22 03/30/2022 LIPID PANEL ,AMA (LDL- CALC) LDL cholesterol 115 mg/dL 0-99 high Cutof f value s recom deep d by the Natio nal Jessie stero l Educa tion Progr am: HERSON ABLE: Jessie stero l <200 mg/dL LDL <100 mg/dL BORDE RLINE : Jessie stero l 200-2 39 mg/dL LDL 101-1 59 mg/dL HIGHE R RISK: Jessie stero l >240 mg/dL LDL >160 mg/dL , HDL <40 mg/dL Not Available [facility] (Lab) [address] [place], [address], 03/31/2022 03:55:17 03/30/20 22 03/30/2022 LIPID PANEL ,AMA (LDL- CALC) non-HDL cholesterol 130 mg/dL no refere nce range A reaso nable goal for non-H DL jessie stero l is one that is 30 mg/dL highe r than the LDL jessie stero l goal. Not Available [facility] (Lab) [address] [place], [address], 03/31/2022 03:55:17 03/30/20 22 03/30/2022 LIPID PANEL ,AMA (LDL- CALC) chol/HDL ratio 2.8 . 0.0-5. 0 Not Available [facility] (Lab) [address], [place], [address], 03/31/2022 03:55:17 03/30/20 22 03/30/2022 CMP(C OMPRE HENSI VE METAB OLIC PANEL ) sodium 141 mmol/ L 133-14 6 Not Available [facility] (Lab) [address], [place], [address], 03/31/2022 03:55:18 03/30/20 22 03/30/2022 CMP(C OMPRE HENSI VE METAB OLIC PANEL ) potassium 4.3 mmol/ L 3.5-5. 1 Not Available [facility] (Lab) [address], [place], [address], 03/31/2022 03:55:18 03/30/20 22 03/30/2022 CMP(C OMPRE HENSI VE METAB OLIC PANEL ) chloride 104 mmol/ L 98-107 Not Available [facility] (Lab) [address], [place], [address], 03/31/2022 03:55:18 03/30/20 22 03/30/2022 CMP(C OMPRE HENSI VE METAB OLIC PANEL ) carbon dioxide 28 mmol/ L 21-31 Not Available [facility] (Lab) [address], [place], [address], 03/31/2022 03:55:18 03/30/20 22 03/30/2022 CMP(C OMPRE HENSI VE METAB OLIC PANEL ) anion gap 9 mmol/ L 4-13 Not Available [facility] (Lab) [address], [place], [address], 03/31/2022 03:55:18 03/30/20 22 03/30/2022 CMP(C OMPRE HENSI VE METAB OLIC PANEL ) blood urea nitrogen 21 mg/dL 7-25 Not Available [facility] (Lab) [address] [place], [address], 03/31/2022 03:55:18 03/30/20 22 03/30/2022 CMP(C OMPRE HENSI VE METAB OLIC PANEL ) creatinine 0.75 mg/dL 0.60-1 .30 Not Available [facility] (Lab) [address], [place], [address], 03/31/2022 03:55:18 03/30/20 22 03/30/2022 CMP(C OMPRE HENSI VE METAB OLIC PANEL ) egfrcr (CKD-epi 2020) 78 mL/mi n/1.7 3_m2 >=60 Not Available [facility] (Lab) [address], [place], [address], 03/31/2022 03:55:18 03/30/20 22 03/30/2022 CMP(C OMPRE HENSI VE METAB OLIC PANEL ) calcium 10.3 mg/dL 8.3-10 .5 Not Available [facility] (Lab) [address], [place], [address], 03/31/2022 03:55:18 03/30/20 22 03/30/2022 CMP(C OMPRE HENSI VE METAB OLIC PANEL ) glucose 83 mg/dL 70-100 Not Available [facility] (Lab) [address], [place], [address], 03/31/2022 03:55:18 03/30/20 22 03/30/2022 CMP(C OMPRE HENSI VE METAB OLIC PANEL ) protein, total 6.9 g/dL 6.4-8. 3 Not Available [facility] (Lab) [address], [place], [address], 03/31/2022 03:55:18 03/30/20 22 03/30/2022 CMP(C OMPRE HENSI VE METAB OLIC PANEL ) albumin 4.6 g/dL 3.5-5. 0 Not Available [facility] (Lab) [address], [place], [address], 03/31/2022 03:55:18 03/30/20 22 03/30/2022 CMP(C OMPRE HENSI VE METAB OLIC PANEL ) ALT 13 units /L 9-43 Not Available [facility] (Lab) [address], [place], [address], 03/31/2022 03:55:18 03/30/20 22 03/30/2022 CMP(C OMPRE HENSI VE METAB OLIC PANEL ) alkaline phosphatase 93 units /L 34-104 Not Available [facility] (Lab) [address], [place], [address], 03/31/2022 03:55:18 03/30/20 22 03/30/2022 CMP(C OMPRE HENSI VE METAB OLIC PANEL ) AST 18 units /L 13-39 Not Available [facility] (Lab) [address], [place], [address], 03/31/2022 03:55:18 03/30/20 22 03/30/2022 CMP(C OMPRE HENSI VE METAB OLIC PANEL ) bilirubin, total 0.7 mg/dL 0.2-1. 2 Not Available [facility] (Lab) [address] [place], [address], 03/31/2022 03:55:18 03/30/20 22 03/30/2022 TSH TSH 0.65 uIU/m L 0.30-5 .33 Not Available [facility] (Lab) [address] [place], [address], 03/31/2022 03:55:18 03/30/20 22 03/30/2022 T4 FREE T4, free 0.91 NG/dL 0.60-1 .40 Not Available [facility] (Lab) [address] [place], [address], 03/31/2022 03:55:18 03/30/20 22 03/30/2022 FREE T3 T3, free 2.9 pg/mL 2.5-3. 9 Not Available [facility] (Lab) [address], [place], [address], 03/31/2022 03:55:19 03/30/20 22 03/30/2022 PENNIE TIN / IRON / TRANS PENNIE N / TIBC iron 73 ug/dL 40-170 Not Available [facility] (Lab) [address], [place], [address], 03/31/2022 03:55:19 03/30/20 22 03/30/2022 PENNIE TIN / IRON / TRANS PENNIE N / TIBC transferrin 250 mg/dL 200-36 0 Not Available [facility] (Lab) [address], [place], [address], 03/31/2022 03:55:19 03/30/20 22 03/30/2022 PENNIE TIN / IRON / TRANS PENNIE N / TIBC ferritin 117.0 NG/mL 8.0-25 2.0 Not Available [facility] (Lab) [address], [place], [address], 03/31/2022 03:55:19 03/30/20 22 03/30/2022 PENNIE TIN / IRON / TRANS PENNIE N / TIBC TIBC 350 ug/dL 250-45 0 Not Available [facility] (Lab) [address] [place], [address], 03/31/2022 03:55:19 03/30/20 22 03/30/2022 PENNIE TIN / IRON / TRANS PENNIE N / TIBC iron saturation 21 % 20-55 Not Available [facility] (Lab) [address], [place], [address], 03/31/2022 03:55:19 03/30/20 22 03/30/2022 CBC W/DIF F WBC 7.8 10'3/ uL 3.6-10 .2 Not Available [facility] (Lab) [address], [place], [address], 03/31/2022 03:55:20 03/30/20 22 03/30/2022 CBC W/DIF F RBC 4.70 10'6/ uL (based on docume nted legal sex) 4.10-5 .30 Not Available [facility] (Lab) [address], [place], [address], 03/31/2022 03:55:20 03/30/20 22 03/30/2022 CBC W/DIF F HGB 14.0 g/dL (based on docume nted legal sex) 11.9-1 5.8 Not Available [facility] (Lab) [address], [place], [address], 03/31/2022 03:55:20 03/30/20 22 03/30/2022 CBC W/DIF F HCT 45.5 % (based on docume nted legal sex) 37.4-4 8.3 Not Available [facility] (Lab) [address], [place], [address], 03/31/2022 03:55:20 03/30/20 22 03/30/2022 CBC W/DIF F MCV 98.0 fL 82.0-9 9.0 Not Available [facility] (Lab) [address], [place], [address], 03/31/2022 03:55:20 03/30/20 22 03/30/2022 CBC W/DIF F MCH 30.0 pg 27.0-3 3.0 Not Available [facility] (Lab) [address], [place], [address], 03/31/2022 03:55:20 03/30/20 22 03/30/2022 CBC W/DIF F MCHC 31.0 g/dL 32.0-3 6.0 low Not Available [facility] (Lab) [address], [place], [address], 03/31/2022 03:55:20 03/30/20 22 03/30/2022 CBC W/DIF F RDW 13.0 % 11.0-1 5.0 Not Available [facility] (Lab) [address] [facility], [place], [address], 03/31/2022 03:55:20 03/30/20 22 03/30/2022 CBC W/DIF F plt 303 10'3/ uL 150-45 0 Not Available [facility] (Lab) [address] [facility], [place], [address], 03/31/2022 03:55:20 03/30/20 22 03/30/2022 CBC W/DIF F MPV 13.7 fL 9.8-12 .7 high Not Available [facility] (Lab) [address] [facility], [place], [address], 03/31/2022 03:55:20 03/30/20 22 03/30/2022 CBC W/DIF F NRBC's 0.00 % 0 Not Available [facility] (Lab) [address] [facility], [place], [address], 03/31/2022 03:55:20 03/30/20 22 03/30/2022 CBC W/DIF F absolute NRBCs 0.0 10'3/ uL 0 Not Available [facility] (Lab) [address] [facility], [place], [address], 03/31/2022 03:55:20 03/30/20 22 03/30/2022 CBC W/DIF F neutrophils 65.0 % 37.0-7 2.0 Not Available [facility] (Lab) [address], [place], [address], 03/31/2022 03:55:20 03/30/20 22 03/30/2022 CBC W/DIF F lymphocytes 25.0 % 16.0-4 8.0 Not Available [facility] (Lab) [address], [place], [address], 03/31/2022 03:55:20 03/30/20 22 03/30/2022 CBC W/DIF F monocytes 8.0 % 4.0-14 .0 Not Available [facility] (Lab) [address], [place], [address], 03/31/2022 03:55:20 03/30/20 22 03/30/2022 CBC W/DIF F eosinophils 2.0 % 0.0-9. 0 Not Available [facility] (Lab) [address], [place], [address], 03/31/2022 03:55:20 03/30/20 22 03/30/2022 CBC W/DIF F basophils 0.0 % 0.0-2. 0 Not Available [facility] (Lab) [address] [place], [address], 03/31/2022 03:55:20 03/30/20 22 03/30/2022 CBC W/DIF F immature granulocytes 0.0 % no define d refere nce range Not Available [facility] (Lab) [address], [place], [address], 03/31/2022 03:55:20 03/30/20 22 03/30/2022 CBC W/DIF F absolute neutrophils 5.1 10'3/ uL 1.1-6. 0 Not Available [facility] (Lab) [address], [place], [address], 03/31/2022 03:55:20 03/30/20 22 03/30/2022 CBC W/DIF F absolute lymphocytes 2.0 10'3/ uL 0.7-3. 4 Not Available [facility] (Lab) [address], [place], [address], 03/31/2022 03:55:20 03/30/20 22 03/30/2022 CBC W/DIF F absolute monocytes 0.6 10'3/ uL 0.3-1. 0 Not Available [facility] (Lab) [address] [place], [address], 03/31/2022 03:55:20 03/30/20 22 03/30/2022 CBC W/DIF F absolute eosinophils 0.1 10'3/ uL 0.0-0. 6 Not Available [facility] (Lab) [address], [place], [address], 03/31/2022 03:55:20 03/30/20 22 03/30/2022 CBC W/DIF F absolute basophils 0.0 10'3/ uL 0.0-0. 1 Not Available [facility] (Lab) [address], [place], [address], 03/31/2022 03:55:20 03/30/20 22 03/30/2022 CBC W/DIF F absolute immature granulocytes 0.00 10'3/ uL 0.00-0 .10 2021 2:16 AM: P indic ates parti al resul ts on a panel have been relea sed. Addit ional resul ts will follo w. 2021 2:16 AM: This resul t has been final verif ied. No addit ional or noriega ed resul ts are expec stew. Not Available [facility] (Lab) [address], [place], [address], 03/31/2022 03:55:20 03/30/20 22 03/30/2022 VITAM IN B12 / FOLAT E PANEL vitamin B12 640 pg/mL 180-91 4 Alaina l Range : 180-9 14 pg/mL . Indet ermin ate Range : 145-1 80 pg/mL . Defic ient Range : <=145 pg/mL . Not Available [facility] (Lab) [address], [place], [address], 03/31/2022 03:55:20 03/30/20 22 03/30/2022 VITAM IN B12 / FOLAT E PANEL folate, serum >20.0 NG/mL 6.0-20 .0 high Not Available [facility] (Lab) [address], [place], [address], 03/31/2022 03:55:20 03/30/20 22 03/30/2022 VITAM IN D, 25-OH (TOTA L D2/D3 ) vitamin D, 25-hydroxy, total 75.1 NG/mL 30-80 NOTE: Defic iency : <20 ng/mL Insuf ficie ncy: 20-29 ng/mL Optim um Level : 30-80 ng/mL Possi ble Toxic ity: >80 ng/mL Most patie nts with toxic ity have level s >150 ng/mL . Not Available [facility] (Lab) [address], [place], [address], 03/31/2022 03:55:21 03/30/20 22 03/30/2022 HEMOG LOBIN A1C hemoglobin A1C 5.6 % 0-5.6 The Ameri can Diabe sage Assoc iatio n recom mends that a prima ry goal of thera py kate d be a HBA1C of < 7% and that physi cians shoul d reeva luate the treat ment regim en in patie nts with HBA1C value s consi stent ly > 8%. <5.7% Alaina l 5.7 - 6.4% Incre ased risk for diabe sage >=6.5 % Diagn ostic of diabe sage <7.0% Goal of thera py >8.0% Actio n sugge sted Not Available [facility] (Lab) [address], [place], [address], 03/31/2022 03:55:21 03/09/20 23 03/09/2023 CRP, HIGH SENSI TIVIT Y (HSCR P) C-reactive protein, high sensitivity 1.15 mg/L 0.00-3 .00 Risk Accor ding To AHA/C DC Guide lines : < 1.0 mg/L Low Cardi ovasc ular Risk 1.0-3 .0 mg/L [place] Cardi ovasc ular Risk > 3.0 mg/L High Cardi ovasc ular Risk > 10.0 mg/L Acute Infla mmati on Not Available [facility] (Lab) [address], [place], [address], 03/15/2023 09:53:31 03/09/20 23 03/09/2023 LIPID PANEL ,AMA (LDL- CALC) total cholesterol 178 mg/dL 0-199 Not Available [facility] (Lab) [address] [place], [address], 03/15/2023 09:53:32 03/09/20 23 03/09/2023 LIPID PANEL ,AMA (LDL- CALC) triglyceride s 77 mg/dL 0.00-1 50.00 NCEP Refer ence Value s for Trigl yceri coty: Alaina l: <150 mg/dL Borde rline High: 150 - 199 mg/dL High: 200 - 499 mg/dL Very High: >/= 500 mg/dL Not Available [facility] (Lab) [address] [place], [address], 03/15/2023 09:53:32 03/09/2003/09/2023 LIPID PANEL ,AMA (LDL- CALC) HDL cholesterol 62 mg/dL >40 Not Available [facility] (Lab) [address] [place], [address], 03/15/2023 09:53:32 03/09/2003/09/2023 LIPID PANEL ,AMA (LDL- CALC) LDL cholesterol 99 mg/dL 0-99 Cutof f value s recom deep d by the Natio nal Jessie stero l Educa tion Progr am: HERSON ABLE: Jessie stero l <200 mg/dL LDL <100 mg/dL BORDE RLINE : Jessie stero l 200-2 39 mg/dL LDL 101-1 59 mg/dL HIGHE R RISK: Jessie stero l >240 mg/dL LDL >160 mg/dL , HDL <40 mg/dL Not Available [facility] (Lab) [address] [place], [address], 03/15/2023 09:53:32 03/09/20 23 03/09/2023 LIPID PANEL ,AMA (LDL- CALC) non-HDL cholesterol 116 mg/dL no refere nce range A reaso nable goal for non-H DL jessie stero l is one that is 30 mg/dL highe r than the LDL jessie stero l goal. Not Available [facility] (Lab) [address], [place], [address], 03/15/2023 09:53:32 03/09/20 23 03/09/2023 LIPID PANEL ,AMA (LDL- CALC) chol/HDL ratio 2.9 . 0.0-5. 0 On February 13, 2023, [facility] labor atori es noriega ed the equat ion for calcu latin g estim ated low-d ensit y lipop rotei n-cho leste rol (LDL- C) from the Fried farzaneh equat ion to the Melissa n/Hop kins equat ion. This new equat ion is only valid for lipid panel s with trigl yceri coty < 400 mg/dL . Studi es have demon strat ed that this new equat ion will impro ve the accur acy of LDL-C , espec ially in [place] when LDL-C ginette ntrat ions are relat ively low (< 100 mg/dL ), trigl yceri coty are eleva stew, or patie nt is non-f astin g. Refer ences : - Melissa cristina, Carlo Sotomayor, Cornelio Delgadillo , [facility] rosalino bolanos, Thompson Keith, Thompson montenegro, Eric gayle , and Tremaine Valentino . 2013. Comp ariso n of a Novel Metho d vs the Fried farzaneh Equat ion for Estim ating Low-D ensit y Lipop rotei n Jessie stero l Level s from the [place] Lipid Profi peweee. TUCKER: The Journ al of the Ameri can Medic al Assoc iatio n 310 (19): 2060- . - [place] V, Denisse J, Adrian grove A, Teofilo M, Shaunna houston R, Su gro[place] E, Naz gayle RS, Chicho SR, Melissa cristina SS. Fast ing Versu s Nonfa sting and Low-D ensit y Lipop rotei n Jessie stero l Accur acy. Lang duval n. 2017Oct 23;137 (1):1 0-19. Not Available [facility] (Lab) [address], [place], [address], 03/15/2023 09:53:32 03/09/20 23 03/09/2023 TSH TSH 0.06 uIU/m L 0.30-5 .33 low Not Available [facility] (Lab) [address], [place], [address], 03/15/2023 09:53:32 03/09/20 23 03/09/2023 T4 FREE T4, free 1.31 NG/dL 0.60-1 .40 Not Available [facility] (Lab) [address], [place], [address], 03/15/2023 09:53:33 03/09/20 23 03/09/2023 FREE T3 T3, free 2.73 pg/mL 2.50-3 .90 Not Available [facility] (Lab) [address], [place], [address], 03/15/2023 09:53:33 03/09/20 23 03/09/2023 PENNIE TIN / IRON / TRANS PENNIE N / TIBC iron 101 ug/dL 40-170 Not Available [facility] (Lab) [address] [place], [address], 03/15/2023 09:53:34 03/09/20 23 03/09/2023 PENNIE TIN / IRON / TRANS PENNIE N / TIBC transferrin 211 mg/dL 200-36 0 Not Available [facility] (Lab) [address] [place], [address], 03/15/2023 09:53:34 03/09/20 23 03/09/2023 PENNIE TIN / IRON / TRANS PENNIE N / TIBC ferritin 113.9 NG/mL 8.0-25 2.0 Not Available [facility] (Lab) [address], [place], [address], 03/15/2023 09:53:34 03/09/20 23 03/09/2023 PENNIE TIN / IRON / TRANS PENNIE N / TIBC TIBC 295 ug/dL 250-45 0 Not Available [facility] (Lab) [address] [place], [address], 03/15/2023 09:53:34 03/09/20 23 03/09/2023 PENNIE TIN / IRON / TRANS PENNIE N / TIBC iron saturation 34 % 20-55 Not Available [facility] (Lab) [address], [place], [address], 03/15/2023 09:53:34 03/09/20 23 03/09/2023 VITAM IN B12 / FOLAT E PANEL vitamin B12 807 pg/mL 180-91 4 Alaina l Range : 180-9 14 pg/mL . Indet ermin ate Range : 145-1 80 pg/mL . Defic ient Range : <=145 pg/mL . Not Available [facility] (Lab) [address] [place], [address], 03/15/2023 09:53:34 03/09/20 23 03/09/2023 VITAM IN B12 / FOLAT E PANEL folate, serum >20.0 NG/mL 6.0-20 .0 high Not Available [facility] (Lab) [address] [place], [address], 03/15/2023 09:53:34 03/09/20 23 03/09/2023 OMEGA -3 AND -6 FATTY ACIDS (FAST ING) omega 3 (epa+dha) index 4.1 % 1.4-4. 9 Risk: Optim al > 3.2%; Moder ate 2.2-3 .2%; High < 2.2% Cardi ovasc ular event risk categ ory cut point s for Freeman 3 index (opti mal, moder ate, high) are based on quart akna of adult [place] refer ence popul ation . Assoc iatio n betwe en Freeman 3 index and cardi ovasc ular event s is based on Jackson t et al. NEJM. 2002; 346:1 113. Not Available [facility] (Lab) [address], [place], [address], 03/15/2023 09:53:35 03/09/20 23 03/09/2023 OMEGA -3 AND -6 FATTY ACIDS (FAST ING) risk Low The Freeman -3 Index is assoc iated with a low risk of cardi ovasc ular disea se becau se it is in the top popul ation quart ile. The Freeman -3 Index categ ories are based on the top (75th perce ntile ) and botto m (25th perce ntile ) quart kana of the refer ence [facility] . Consu mptio n of foods high in omega -3 fatty acids (EPA and DHA) or suppl ement s conta ining omega -3 fatty acids can incre ase the Freeman -3 Index . Index <2.2: High Index 2.2-3 .2: Moder ate Index >3.2: Optim al Not Available [facility] (Lab) [address], [place], [address], 03/15/2023 09:53:35 03/09/20 23 03/09/2023 OMEGA -3 AND -6 FATTY ACIDS (FAST ING) omega 6/omega 3 ratio 6.0 5.7-21 .3 Not Available [facility] (Lab) [address] [place], [address], 03/15/2023 09:53:35 03/09/20 23 03/09/2023 OMEGA -3 AND -6 FATTY ACIDS (FAST ING) epa/arachido pedro acid ratio 0.1 0.2 or less Not Available [facility] (Lab) [address] [place], [address], 03/15/2023 09:53:35 03/09/20 23 03/09/2023 OMEGA -3 AND -6 FATTY ACIDS (FAST ING) arachidonic acid 7.4 % 5.2-12 .9 Not Available [facility] (Lab) [address], [place], [address], 03/15/2023 09:53:35 03/09/20 23 03/09/2023 OMEGA -3 AND -6 FATTY ACIDS (FAST ING) epa 0.9 % 0.2-1. 5 Not Available [facility] (Lab) [address], [place], [address], 03/15/2023 09:53:35 03/09/20 23 03/09/2023 OMEGA -3 AND -6 FATTY ACIDS (FAST ING) dha 3.2 % 1.2-3. 9 This test was devel oped and its evelio tical perfo rmanc e jazzy cteri stics have been deter mined by [facility] tran . It has not been clear ed or appro jose r by FDA. This assay has been valid ated pursu ant to the CLIA regul ation s and is used for clini brittny purpo ses. Perfo rming Organ izati on Infor matcarmen n: Site ID: EZ Name: [email or web address] dara s/Pedro isaac [facility] , Addre ss: [id number] [address] [facility] [address] Direc tor: Nicki rivera MD,Ph D,BUTCH Not Available [facility] (Lab) [address], [place], [address], 03/15/2023 09:53:35 03/14/20 24 03/14/2024 VITAM IN D, 25-OH (TOTA L D2/D3 ) vitamin D, 25-hydroxy, total 61.7 NG/mL 30.0-1 00.0 Sugge stive of Defic iency : <20 ng/mL Sugge stive of Insuf ficie ncy: 20-29 ng/mL Sugge stive of Suffi cienc y: 30-10 0 ng/mL Sugge stive of Toxic ity: >150 ng/mL Not Available [facility] (Lab) [address], [place], [address], 03/15/2024 06:32:52 03/14/2003/14/2024 CRP, HIGH SENSI TIVIT Y (HSCR P) C-reactive protein, high sensitivity 1.17 mg/L 0.00-3 .00 Risk Accor ding To AHA/C DC Guide lines : < 1.0 mg/L Low Cardi ovasc ular Risk 1.0-3 .0 mg/L [place] Cardi ovasc ular Risk > 3.0 mg/L High Cardi ovasc ular Risk > 10.0 mg/L Acute Infla mmati on DRAWN BY STAFF Not Available [facility] (Lab) [address], [place], [address], 03/15/2024 06:35:16 03/14/20 24 03/14/2024 LIPID PANEL ,AMA (LDL- CALC) total cholesterol 211 mg/dL 0-199 high Not Available [facility] (Lab) [address], [place], [address], 03/15/2024 06:35:17 03/14/2003/14/2024 LIPID PANEL ,AMA (LDL- CALC) triglyceride s 63 mg/dL 0-150 NCEP Refer ence Value s for Trigl yceri coty: Alaina l: <150 mg/dL Borde rline High: 150 - 199 mg/dL High: 200 - 499 mg/dL Very High: >/= 500 mg/dL Not Available [facility] (Lab) [address], [place], [address], 03/15/2024 06:35:17 03/14/2003/14/2024 LIPID PANEL ,AMA (LDL- CALC) HDL cholesterol 70 mg/dL >40 Not Available [facility] (Lab) [address] [place], [address], 03/15/2024 06:35:17 03/14/2003/14/2024 LIPID PANEL ,AMA (LDL- CALC) LDL cholesterol 126 mg/dL 0-99 high Cutof f value s recom deep d by the Natio nal Jessie stero l Educa tion Progr am: HERSON ABLE: Jessie stero l <200 mg/dL LDL <100 mg/dL BORDE RLINE : Jessie stero l 200-2 39 mg/dL LDL 101-1 59 mg/dL HIGHE R RISK: Jessie stero l >240 mg/dL LDL >160 mg/dL , HDL <40 mg/dL Not Available [facility] (Lab) [address], [place], [address], 03/15/2024 06:35:17 03/14/2003/14/2024 LIPID PANEL ,AMA (LDL- CALC) non-HDL cholesterol 141 mg/dL no refere nce range A reaso nable goal for non-H DL jessie stero l is one that is 30 mg/dL highe r than the LDL jessie stero l goal. Not Available [facility] (Lab) [address], [place], [address], 03/15/2024 06:35:17 03/14/2003/14/2024 LIPID PANEL ,AMA (LDL- CALC) chol/HDL ratio 3.0 . 0.0-5. 0 DRAWN BY STAFF On February 13, 2023, [facility] labor atori nelly noriega ed the equat ion for calcu latin g estim ated low-d ensit y lipop rotei n-cho leste rol (LDL- C) from the Fried farzaneh equat ion to the Melissa cristina/Ryan gardner equat ion. This new equat ion is only valid for lipid panel s with trigl yceri coty < 400 mg/dL . Studi es jaya demon strat ed that this new equat ion will impro ve the accur acy of LDL-C , espec ially in [place] when LDL-C ginette ntrat ions are relat ively low (< 100 mg/dL ), trigl yceri coty are eleva stew, or patie nt is non-f astin g. Refer ences : - Carlo Jo, Cornelio el J. Holli Delgadillo ed. Prudence bolanos, Thompson Keith, Thompson montenegro, Eric gayle , and Tremaine Valentino . 2013. Comp ariso n of a Novel Metho d vs the Fried farzaneh Equat ion for Estim ating Low-D ensit y Lipop rotei n Jessie stero l Level s from the [place] Lipid Profezio le. TUCKER: The Journ al of the Ameri can Medic al Assoc iatio n 310 (19): 2060- . - [place] V, Denisse J, Adrian ar A, Teofilo M, Shaunna e R, [place] E, Naz gayle RS, Chicho SR, Melissa cristina SS. Fast ing Versu s Nonfa sting and Low-D ensit y Lipop rotei n Jessie stero l Accur acy. Circu latio n. 2017Oct 23;137 (1):1 0-19. Not Available [facility] (Lab) [address] [place], [address], 03/15/2024 06:35:17 03/14/20 24 03/14/2024 CMP(C OMPRE HENSI VE METAB OLIC PANEL ) sodium 138 mmol/ L 133-14 6 Not Available [facility] (Lab) [address] [place], [address], 03/15/2024 06:35:17 03/14/20 24 03/14/2024 CMP(C OMPRE HENSI VE METAB OLIC PANEL ) potassium 4.1 mmol/ L 3.5-5. 1 Not Available [facility] (Lab) [address] [place], [address], 03/15/2024 06:35:17 03/14/20 24 03/14/2024 CMP(C OMPRE HENSI VE METAB OLIC PANEL ) chloride 104 mmol/ L 98-107 Not Available [facility] (Lab) [address] [place], [address], 03/15/2024 06:35:17 03/14/20 24 03/14/2024 CMP(C OMPRE HENSI VE METAB OLIC PANEL ) carbon dioxide 25 mmol/ L 21-31 Not Available [facility] (Lab) [address], [place], [address], 03/15/2024 06:35:17 03/14/20 24 03/14/2024 CMP(C OMPRE HENSI VE METAB OLIC PANEL ) anion gap 9 mmol/ L 4-13 Not Available [facility] (Lab) [address], [place], [address], 03/15/2024 06:35:17 03/14/2003/14/2024 CMP(C OMPRE HENSI VE METAB OLIC PANEL ) blood urea nitrogen 27 mg/dL 7-25 high Not Available [facility] (Lab) [address], [place], [address], 03/15/2024 06:35:17 03/14/20 24 03/14/2024 CMP(C OMPRE HENSI VE METAB OLIC PANEL ) creatinine 0.84 mg/dL 0.60-1 .30 Not Available [facility] (Lab) [address] [place], [address], 03/15/2024 06:35:17 03/14/20 24 03/14/2024 CMP(C OMPRE HENSI VE METAB OLIC PANEL ) egfrcr (CKD-epi 2020) 67 mL/mi n/1.7 3_m2 >=60 Not Available [facility] (Lab) [address], [place], [address], 03/15/2024 06:35:17 03/14/2003/14/2024 CMP(C OMPRE HENSI VE METAB OLIC PANEL ) calcium 10.3 mg/dL 8.3-10 .5 Not Available [facility] (Lab) [address], [place], [address], 03/15/2024 06:35:17 03/14/20 24 03/14/2024 CMP(C OMPRE HENSI VE METAB OLIC PANEL ) glucose 88 mg/dL 70-100 Not Available [facility] (Lab) [address], [place], [address], 03/15/2024 06:35:17 03/14/20 24 03/14/2024 CMP(C OMPRE HENSI VE METAB OLIC PANEL ) protein, total 7.3 g/dL 6.4-8. 3 Not Available [facility] (Lab) [address], [place], [address], 03/15/2024 06:35:17 03/14/20 24 03/14/2024 CMP(C OMPRE HENSI VE METAB OLIC PANEL ) albumin 4.8 g/dL 3.5-5. 0 Not Available [facility] (Lab) [address], [place], [address], 03/15/2024 06:35:17 03/14/20 24 03/14/2024 CMP(C OMPRE HENSI VE METAB OLIC PANEL ) ALT 13 units /L 9-43 Not Available [facility] (Lab) [address], [place], [address], 03/15/2024 06:35:17 03/14/20 24 03/14/2024 CMP(C OMPRE HENSI VE METAB OLIC PANEL ) alkaline phosphatase 106 units /L 34-104 high Not Available [facility] (Lab) [address] [place], [address], 03/15/2024 06:35:17 03/14/20 24 03/14/2024 CMP(C OMPRE HENSI VE METAB OLIC PANEL ) AST 19 units /L 13-39 Not Available [facility] (Lab) [address] [place], [address], 03/15/2024 06:35:17 03/14/20 24 03/14/2024 CMP(C OMPRE HENSI VE METAB OLIC PANEL ) bilirubin, total 1.0 mg/dL 0.2-1. 2 DRAWN BY STAFF Not Available [facility] (Lab) [address], [place], [address], 03/15/2024 06:35:17 03/14/20 24 03/14/2024 TSH TSH 0.38 uIU/m L 0.30-5 .33 DRAWN BY STAFF Not Available [facility] (Lab) [address], [place], [address], 03/15/2024 06:35:17 03/14/20 24 03/14/2024 PENNIE TIN / IRON / TRANS PENNIE N / TIBC iron 143 ug/dL 40-170 Not Available [facility] (Lab) [address], [place], [address], 03/15/2024 06:35:18 03/14/20 24 03/14/2024 PENNIE TIN / IRON / TRANS PENNIE N / TIBC transferrin 245 mg/dL 200-36 0 Not Available [facility] (Lab) [address], [place], [address], 03/15/2024 06:35:18 03/14/20 24 03/14/2024 PENNIE TIN / IRON / TRANS PENNIE N / TIBC ferritin 155.4 NG/mL 8.0-25 2.0 Not Available [facility] (Lab) [address] [place], [address], 03/15/2024 06:35:18 03/14/20 24 03/14/2024 PENNIE TIN / IRON / TRANS PENNIE N / TIBC TIBC 343 ug/dL 250-45 0 Not Available [facility] (Lab) [address] [place], [address], 03/15/2024 06:35:18 03/14/20 24 03/14/2024 PENNIE TIN / IRON / TRANS PENNIE N / TIBC iron saturation 42 % 20-55 DRAWN BY STAFF Not Available [facility] (Lab) [address] [place], [address], 03/15/2024 06:35:18 03/14/20 24 03/14/2024 T4 FREE T4, free 1.07 NG/dL 0.60-1 .40 This assay is susce ptibl e to inter feren ce from high level s of bioti n which may false ly eleva te resul ts. Pleas e corre late with clini brittny findi ngs. DRAWN BY STAFF Not Available [facility] (Lab) [address], [place], [address], 03/15/2024 06:35:18 03/14/20 24 03/14/2024 FREE T3 T3, free 2.45 pg/mL 2.00-4 .40 This assay is susce ptibl e to inter feren ce from high level s of bioti n which may false ly eleva te resul ts. Pleas e corre late with clini brittny findi ngs inclu ding TSH and FT4 resul ts. If clini kailey indic ated, Free T3 by Evelin Perez sis LC/MS may be perfo rmed. DRAWN BY STAFF Not Available [facility] (Lab) [address], [place], [address], 03/15/2024 06:35:19 04/09/20 25 04/09/2025 CBC W/DIF F WBC 6.2 10'3/ uL 3.5-10 .5 Not Available [facility] (Lab) [address] [place], [address], 04/10/2025 03:14:08 04/09/20 25 04/09/2025 CBC W/DIF F RBC 4.42 10'6/ uL (based on docume nted legal sex) 3.80-5 .20 Not Available [facility] (Lab) [address] [place], [address], 04/10/2025 03:14:08 04/09/20 25 04/09/2025 CBC W/DIF F HGB 13.8 g/dL (based on docume nted legal sex) 11.6-1 5.4 Not Available [facility] (Lab) [address], [place], [address], 04/10/2025 03:14:08 04/09/20 25 04/09/2025 CBC W/DIF F HCT 43.7 % (based on docume nted legal sex) 34.0-4 5.0 Not Available [facility] (Lab) [address], [place], [address], 04/10/2025 03:14:08 04/09/20 25 04/09/2025 CBC W/DIF F MCV 98.9 fL 80.0-9 9.0 Not Available [facility] (Lab) [address], [place], [address], 04/10/2025 03:14:08 04/09/20 25 04/09/2025 CBC W/DIF F MCH 31.2 pg 27.0-3 4.0 Not Available [facility] (Lab) [address], [place], [address], 04/10/2025 03:14:08 04/09/20 25 04/09/2025 CBC W/DIF F MCHC 31.6 g/dL 32.0-3 5.5 low Not Available [facility] (Lab) [address], [place], [address], 04/10/2025 03:14:08 04/09/20 25 04/09/2025 CBC W/DIF F RDW 13.3 % 11.0-1 5.0 Not Available [facility] (Lab) [address], [place], [address], 04/10/2025 03:14:08 04/09/20 25 04/09/2025 CBC W/DIF F plt 297 10'3/ uL 150-40 0 Not Available [facility] (Lab) [address] [place], [address], 04/10/2025 03:14:08 04/09/20 25 04/09/2025 CBC W/DIF F MPV 13.8 fL 8.8-12 .1 high Not Available [facility] (Lab) [address] [facility], [place], [address], 04/10/2025 03:14:08 04/09/20 25 04/09/2025 CBC W/DIF F NRBC's 0.0 % 0.0 Not Available [facility] (Lab) [address] [facility], [place], [address], 04/10/2025 03:14:08 04/09/20 25 04/09/2025 CBC W/DIF F absolute NRBCs 0.0 10'3/ uL no refere nce range establ ished Not Available [facility] (Lab) [address] [facility], [place], [address], 04/10/2025 03:14:08 04/09/20 25 04/09/2025 CBC W/DIF F neutrophils 52.6 % 34.0-7 3.0 Not Available [facility] (Lab) [address] [facility], [place], [address], 04/10/2025 03:14:08 04/09/20 25 04/09/2025 CBC W/DIF F lymphocytes 35.3 % 15.0-5 0.0 Not Available [facility] (Lab) [address] [facility], [place], [address], 04/10/2025 03:14:08 04/09/20 25 04/09/2025 CBC W/DIF F monocytes 9.3 % 1.0-15 .0 Not Available [facility] (Lab) [address] [place], [address], 04/10/2025 03:14:08 04/09/20 25 04/09/2025 CBC W/DIF F eosinophils 2.1 % 0.0-8. 0 Not Available [facility] (Lab) [address] [place], [address], 04/10/2025 03:14:08 04/09/20 25 04/09/2025 CBC W/DIF F basophils 0.5 % 0.0-2. 0 Not Available [facility] (Lab) [address], [place], [address], 04/10/2025 03:14:08 04/09/20 25 04/09/2025 CBC W/DIF F immature granulocytes 0.2 % no define d refere nce range Immat ure Granu locyt es (IG) repre sents autom ated enume ratio n of Metam yeloc ytes, Myelo cytes and Promy elocy sage when IG is < 5%. Blast s are not inclu ded in IG and repor stew separ ately if prese nt. Not Available [facility] (Lab) [address], [place], [address], 04/10/2025 03:14:08 04/09/20 25 04/09/2025 CBC W/DIF F absolute neutrophils 3.2 10'3/ uL 1.5-8. 0 Not Available [facility] (Lab) [address], [place], [address], 04/10/2025 03:14:08 04/09/20 25 04/09/2025 CBC W/DIF F absolute lymphocytes 2.2 10'3/ uL 1.0-4. 0 Not Available [facility] (Lab) [address], [place], [address], 04/10/2025 03:14:08 04/09/20 25 04/09/2025 CBC W/DIF F absolute monocytes 0.6 10'3/ uL 0.2-1. 0 Not Available [facility] (Lab) [address], [place], [address], 04/10/2025 03:14:08 04/09/20 25 04/09/2025 CBC W/DIF F absolute eosinophils 0.1 10'3/ uL 0.0-0. 6 Not Available [facility] (Lab) [address], [place], [address], 04/10/2025 03:14:08 04/09/20 25 04/09/2025 CBC W/DIF F absolute basophils 0.0 10'3/ uL 0.0-0. 3 Not Available [facility] (Lab) [address], [place], [address], 04/10/2025 03:14:08 04/09/20 25 04/09/2025 CBC W/DIF F absolute immature granulocytes 0.0 10'3/ uL 0.00-0 .10 Refer ence range s for nonbi nary/ inter sex or unspe cifie d gende r patie nts have not been estab lishe d. Pleas e refer [facility] for range s estab lishe d for cisge nder patie nts and evalu ate in the clini brittny higinio xt of the indiv idual patie nt: https ://la and book. nm.or g/gen derx Not Available [facility] (Lab) [address], [place], [address], 04/10/2025 03:14:08 04/09/20 25 04/09/2025 CRP, HIGH SENSI TIVIT Y (HSCR P) C-reactive protein, high sensitivity 0.92 mg/L 0.00-3 .00 Risk Accor ding To AHA/C DC Guide lines : < 1.0 mg/L Low Cardi ovasc ular Risk 1.0-3 .0 mg/L [place] [facility] Cardi ovasc ular Risk > 3.0 mg/L High Cardi ovasc ular Risk > 10.0 mg/L Acute Infla mmati on Not Available [facility] (Lab) [address], [place], [address], 04/10/2025 03:14:09 04/09/20 25 04/09/2025 CMP(C OMPRE HENSI VE METAB OLIC PANEL ) sodium 143 mmol/ L 133-14 6 Not Available [facility] (Lab) [address], [place], [address], 04/10/2025 03:14:09 04/09/20 25 04/09/2025 CMP(C OMPRE HENSI VE METAB OLIC PANEL ) potassium 4.2 mmol/ L 3.5-5. 1 Not Available [facility] (Lab) [address] [facility], [place], [address], 04/10/2025 03:14:09 04/09/20 25 04/09/2025 CMP(C OMPRE HENSI VE METAB OLIC PANEL ) chloride 104 mmol/ L 98-107 Not Available [facility] (Lab) [address] [facility], [place], [address], 04/10/2025 03:14:09 04/09/20 25 04/09/2025 CMP(C OMPRE HENSI VE METAB OLIC PANEL ) carbon dioxide 30 mmol/ L 21-31 Not Available [facility] (Lab) [address] [facility], [place], [address], 04/10/2025 03:14:09 04/09/20 25 04/09/2025 CMP(C OMPRE HENSI VE METAB OLIC PANEL ) anion gap 9 mmol/ L 4-13 Not Available [facility] (Lab) [address] [facility], [place], [address], 04/10/2025 03:14:09 04/09/20 25 04/09/2025 CMP(C OMPRE HENSI VE METAB OLIC PANEL ) blood urea nitrogen 23 mg/dL 7-25 Not Available [facility] (Lab) [address] [facility], [place], [address], 04/10/2025 03:14:09 04/09/20 25 04/09/2025 CMP(C OMPRE HENSI VE METAB OLIC PANEL ) creatinine 0.73 mg/dL 0.60-1 .30 Not Available [facility] (Lab) [address] [facility], [place], [address], 04/10/2025 03:14:09 04/09/20 25 04/09/2025 CMP(C OMPRE HENSI VE METAB OLIC PANEL ) egfrcr (CKD-epi 2020) 79 mL/mi n/1.7 3_m2 >=60 Not Available [facility] (Lab) [address] [facility], [place], [address], 04/10/2025 03:14:09 04/09/20 25 04/09/2025 CMP(C OMPRE HENSI VE METAB OLIC PANEL ) calcium 10.2 mg/dL 8.3-10 .5 Not Available [facility] (Lab) [address] [facility], [place], [address], 04/10/2025 03:14:09 04/09/20 25 04/09/2025 CMP(C OMPRE HENSI VE METAB OLIC PANEL ) glucose 86 mg/dL 70-100 Not Available [facility] (Lab) [address] [facility], [place], [address], 04/10/2025 03:14:09 04/09/20 25 04/09/2025 CMP(C OMPRE HENSI VE METAB OLIC PANEL ) protein, total 7.3 g/dL 6.4-8. 3 Not Available [facility] (Lab) [address] [facility], [place], [address], 04/10/2025 03:14:09 04/09/20 25 04/09/2025 CMP(C OMPRE HENSI VE METAB OLIC PANEL ) albumin 4.7 g/dL 3.5-5. 0 Not Available [facility] (Lab) [address] [facility], [place], [address], 04/10/2025 03:14:09 04/09/20 25 04/09/2025 CMP(C OMPRE HENSI VE METAB OLIC PANEL ) ALT 19 units /L 9-43 Not Available [facility] (Lab) [address] [facility], [place], [address], 04/10/2025 03:14:09 04/09/20 25 04/09/2025 CMP(C OMPRE HENSI VE METAB OLIC PANEL ) alkaline phosphatase 85 units /L 34-104 Not Available [facility] (Lab) [address] [facility], [place], [address], 04/10/2025 03:14:09 04/09/20 25 04/09/2025 CMP(C OMPRE HENSI VE METAB OLIC PANEL ) AST 17 units /L 13-39 Not Available [facility] (Lab) [address] [facility], [place], [address], 04/10/2025 03:14:09 04/09/20 25 04/09/2025 CMP(C OMPRE HENSI VE METAB OLIC PANEL ) bilirubin, total 0.6 mg/dL 0.2-1. 2 Not Available [facility] (Lab) [address] [facility], [place], [address], 04/10/2025 03:14:09 04/09/20 25 04/09/2025 LIPID PANEL ,AMA (LDL- CALC) total cholesterol 186 mg/dL 0-199 Not Available [facility] (Lab) [address] [place], [address], 04/10/2025 03:14:10 04/09/20 25 04/09/2025 LIPID PANEL ,AMA (LDL- CALC) triglyceride s 69 mg/dL 0-150 NCEP Refer ence Value s for Trigl yceri coty: Alaina l: <150 mg/dL Borde rline High: 150 - 199 mg/dL High: 200 - 499 mg/dL Very High: >/= 500 mg/dL Not Available [facility] (Lab) [address] [place], [address], 04/10/2025 03:14:10 04/09/20 25 04/09/2025 LIPID PANEL ,AMA (LDL- CALC) HDL cholesterol 70 mg/dL >40 Not Available [facility] (Lab) [address] [place], [address], 04/10/2025 03:14:10 04/09/2004/09/2025 LIPID PANEL ,AMA (LDL- CALC) LDL cholesterol 100 mg/dL 0-99 high Cutof f value s recom deep d by the Natio nal Jessie stero l Educa tion Progr am: HERSON ABLE: Jessie stero l <200 mg/dL LDL <100 mg/dL BORDE RLINE : Jessie stero l 200-2 39 mg/dL LDL 101-1 59 mg/dL HIGHE R RISK: Jessie stero l >240 mg/dL LDL >160 mg/dL , HDL <40 mg/dL Not Available [facility] (Lab) [address] [facility], [place], [address], 04/10/2025 03:14:10 04/09/2004/09/2025 LIPID PANEL ,AMA (LDL- CALC) non-HDL cholesterol 116 mg/dL no refere nce range A reaso nable goal for non-H DL jessie stero l is one that is 30 mg/dL highe r than the LDL jessie stero l goal. Not Available [facility] (Lab) [address] [facility], [place], [address], 04/10/2025 03:14:10 04/09/2004/09/2025 LIPID PANEL ,AMA (LDL- CALC) chol/HDL ratio 2.7 . 0.0-5. 0 On February 13, 2023, [facility] labor atori nelly noriega ed the equat ion for calcu latin g estim ated low-d ensit y lipop rotei n-cho leste rol (LDL- C) from the Fried farzaneh equat ion to the Melissa cristina/[facility] equat ion. This new equat ion is only valid for lipid panel s with trigl yceri coty < 400 mg/dL . Studi es jaya demon strat ed that this new equat ion will impro ve the accur acy of LDL-C , espec ially in scena solis when LDL-C ginette ntrat ions are relat ively low (< 100 mg/dL ), trigl yceri coty are eleva stew, or patie nt is non-f astin g. Refer ences : - Melissa cristina, Carlo Sotomayor, Cornelio Delgadillo , Holli bolanos, Thompson Keith, Thompson montenegro, Eric gayle , and Tremaine Valentino . 2013. Comp ariso n of a Novel Metho d vs the Fried farzaneh Equat ion for Estim ating Low-D ensit y Lipop rotei n Jessie stero l Level s from the [place] [facility] le. TUCKER: The Journ al of the Ameri can Medic al Assoc iatio n 310 (19): 2060- . - [place] gro[place] V, Denisse J, Adrian ar A, Teofilo M, Shaunna houston R, Su grove E, Naz gayle RS, Chicho SR, Melissa cristina SS. Fast ing Versu s Nonfa sting and Low-D ensit y Lipop rotei n Jessie stero l Accur acy. Circu latio n. 2017Oct 23;137 (1):1 0-19. Not Available [facility] (Lab) [address] [place], [address], 04/10/2025 03:14:10 04/09/20 25 04/09/2025 TSH TSH 0.27 uIU/m L 0.30-5 .33 low Not Available [facility] (Lab) [address] [place], [address], 04/10/2025 03:14:10 04/09/20 25 04/09/2025 T4 FREE T4, free 1.14 NG/dL 0.60-1 .40 This assay is susce ptibl e to inter feren ce from high level s of bioti n which may false ly eleva te resul ts. Pleas e corre late with clini brittny findi ngs. Not Available [facility] (Lab) [address] [facility], [place], [address], 04/10/2025 03:14:11 04/09/20 25 04/09/2025 FREE T3 T3, free 2.54 pg/mL 2.00-4 .40 This assay is susce ptibl e to inter feren ce from high level s of bioti n which may false ly eleva te resul ts. Pleas e corre late with clini brittny findi ngs inclu ding TSH and FT4 resul ts. If clini kailey indic ated, Free T3 by Equil shivam Perez sis LC/MS may be perfo rmed. Not Available [facility] (Lab) [address] [facility], [place], [address], 04/10/2025 03:14:11 04/09/20 25 04/09/2025 VITAM IN B12 / FOLAT E PANEL vitamin B12 1201 pg/mL 180-91 4 high Alaina l Range : 180-9 14 pg/mL . Indet ermin ate Range : 145-1 80 pg/mL . Defic ient Range : <=145 pg/mL . Not Available [facility] (Lab) [address] [facility], [place], [address], 04/10/2025 03:14:11 04/09/20 25 04/09/2025 VITAM IN B12 / FOLAT E PANEL folate, serum >20.0 NG/mL 6.0-20 .0 high Not Available [facility] (Lab) [address] [place], [address], 04/10/2025 03:14:11 04/09/20 25 04/09/2025 VITAM IN D, 25-OH (TOTA L D2/D3 ) vitamin D, 25-hydroxy, total 68.9 NG/mL 30.0-1 00.0 Sugge stive of Defic iency : <20 ng/mL Sugge stive of Insuf ficie ncy: 20-29 ng/mL Sugge stive of Suffi cienc y: 30-10 0 ng/mL Sugge stive of Toxic ity: >150 ng/mL Not Available [facility] (Lab) [address] [place], [address], 04/10/2025 05:29:37 Result Notes None recorded. Problems Name Problem SNOMED Code Status Onset Date Resolution Date Notes Provider Name and Address Organization Details Recorded Time Hypothyroidism 43611590 Active 2021 Angie Farrell [address] [place], [address], [facility] 2 12:52:36 Hyperlipidemia 13187569 Active 2021 Angie Farrell [address] [place], [address], [facility] 2 12:52:38 Loss of hair 284361118 Active 2021 Angie Farrell [address] [place], [address], [facility] 2 12:52:42 Problem Notes None recorded. Procedures Surgical History Date Name Laterality Status Provider Name and Address Organization Details Recorded Time [facility] completed [facility] 03/03/2020 14:20:59 Mastectomy completed Luis Wilkinson [facility] 03/03/2020 14:22:54 Imaging Results None recorded. Procedure Notes None recorded. Medical Equipment None Reported. Allergies No known drug allergies Medications Name Sig Start Date Stop Date Status Note LastModified by Organization Details LastModified Time Viscum Paige C 1 ampule injected subq twice weekly 03/30 completed Not Available Not Available Not Available levothyroxi ne sodium 112 mcg tabs 06/17 completed Not Available Not Available Not Available dexamethaso ne 4 mg tabs 06/17 completed Not Available Not Available Not Available amoxicillin 500 mg capsule TAKE 1 CAPSULE BY MOUTH 3 TIMES A DAY 03/14 completed Not Available Not Available Not Available doxycycline hyclate 100 mg capsule 03/30 completed Not Available Not Available Not Available paroxetine 10 mg tablet active Not Available Not Available Not Available clindamycin HCl 300 mg capsule TAKE 1 CAPSULE BY MOUTH 3 TIMES A DAY 02/25 completed Not Available Not Available Not Available azithromyci n 250 mg tablet TAKE 2 TABLET (500 MG) ON DAY 1, THEN 1 TABLET (250MG) ON DAYS 2 5. 02/25 completed Not Available Not Available Not Available tramadol 37.5 mg-acetamin ophen 325 mg tablet TAKE 2 TABLETS BY MOUTH EVERY 4 TO 6 HOURS NEEDED 03/30 completed Not Available Not Available Not Available hydrocodone 5 mg-acetamin ophen 325 mg tablet 06/17 completed Not Available Not Available Not Available prednisone 20 mg tablet 03/03 completed Not Available Not Available Not Available fluorouraci l 5 % topical cream 03/14 completed Not Available Not Available Not Available prochlorper azine maleate 10 mg tablet 06/17 completed Not Available Not Available Not Available triamcinolo ne acetonide 0.1 % topical cream 03/03 completed Not Available Not Available Not Available levothyroxi ne 100 mcg tablet Take 1 tablet every day by oral route. active Not Available Not Available No t Available amoxicillin 875 mg tablet TAKE 1 TABLET BY MOUTH EVERY 12 HOURS FOR 10 DAYS 03/30 completed Not Available Not Available Not Available benzonatate 100 mg capsule TAKE 1 CAPSULE BY MOUTH EVERY 8 HOURS NEEDED FOR COUGH 02/25 completed Not Available Not Available Not Available dexamethaso ne 4 mg tablet 02/25 completed Not Available Not Available Not Available mupirocin 2 % topical ointment 03/09 completed Not Available Not Available Not Available clobetasol 0.05 % scalp solution 03/14 completed Not Available Not Available Not Available fluticasone propionate 50 mcg/actuati on nasal spray,suspe nsion 03/09 completed Not Available Not Available Not Available levothyroxi ne 112 mcg tablet Take one (1) tablet by mouth every day 03/14 completed Not Available Not Available Not Available neomycin-po lymyxin-hyd rocort 3.5 mg-10,000 unit/mL-1 % ear drops,susp 03/03 completed Not Available Not Available Not Available azelaic acid 15 % topical gel 03/09 completed Not Available Not Available Not Available nitrofurant oin monohydrate /macrocryst als 100 mg capsule 06/17 completed Not Available Not Available Not Available Vitals Date Recorded Body height Body temperature Body mass index (BMI) Body weight Heart rate Systolic blood pressure Diastolic blood pressure Provider Name and Address Organization Details Last Updated DateTime 1 157.48 cm 97.2 [degF] 24.7 kg/m2 12239.9 7 g 64 /min 180 mm[Hg] 81 mm[Hg] [facility] 1 12:13:29 Date Recorded Body height Body mass index (BMI) Body weight Heart rate Body temperature Systolic blood pressure Diastolic blood pressure Provider Name and Address Organization Details Last Updated DateTime 3 157.48 cm 24.7 kg/m2 72609.9 7 g 50 /min 97.5 [degF] 163 mm[Hg] 73 mm[Hg] [facility] 3 12:27:32 Date Recorded Body height Body mass index (BMI) Body weight Heart rate Body temperature Systolic blood pressure Diastolic blood pressure Provider Name and Address Organization Details Last Updated DateTime 4 157.48 cm 23.7 kg/m2 14044.2 9 g 51 /min 97.5 [degF] 180 mm[Hg] 75 mm[Hg] Rahcell Syed [facility] 4 13:39:35 Date Recorded Heart rate Body weight Body mass index (BMI) Body height Body temperature Systolic blood pressure Diastolic blood pressure Provider Name and Address Organization Details Last Updated DateTime 2 54 /min 22576.4 2 g 23.6 kg/m2 157.48 cm 97.3 [degF] 195 mm[Hg] 72 mm[Hg] [facility] 2 12:13:38 Date Recorded Body weight Body mass index (BMI) Body height Heart rate Body temperature Systolic blood pressure Diastolic blood pressure Provider Name and Address Organization Details Last Updated DateTime 5 47679.0 1 g 23.8 kg/m2 157.48 cm 50 /min 97.7 [degF] 183 mm[Hg] 69 mm[Hg] [facility] 5 14:48:32 Social History None recorded. Functional Status None recorded. Mental Status None recorded. Family History Relationship Description Onset Age of this Age Resolved Age Notes LastModified by Organization Details LastModified Time Father Malignant neoplastic disease amalic Not available 2019 14:20:33 Mother Heart disease amalic Not available 2019 14:20:46 Medical History Condition Response Coronary Artery Disease N Gout N Kidney Stones N Blood Diseases N Hyperthyroidism N Hypothyroidism Y Depression N COPD N Developmental or Behavioral Disorders N Anxiety Disorder N Muscle, Joint, or Bone Problems N Vision or Eye Problems N Arthritis N Head Injury/Concussion N Congenital Anomalies N Cancer Y Stroke N ADHD N Bladder or Kidney Problems N Hospital Admission other than N High Cholesterol N Liver Disease N Headaches N Fibromyalgia N Kidney Disease N Ear or Hearing Problems N Thyroid Problems Y Skin Problems Y Anemia N Constipation N Mental Illness N Diabetes N Bedwetting N Seizures/Epilepsy N Heart Problems/Murmur N Tuberculosis N Diverticulitis N Asthma N Allergies N Reflux/GERD N Heart Disease N Pulmonary Embolism N Hypertension N Osteoporosis N Chicken Pox Y Autism Spectrum Disorder (ASD) N Gynecological HistoryNo gynecological history recorded. 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 Hypothyroidism 68850878 E03.9 [id number] Addison Garcia MD Main Office [address] [place] [address] 3 06/17/2020 12:18:19 06/17/2020 13:18:59 Ductal carcinoma in situ of breast 951367972 D05.11 Hypothyroidism 85424325 E03.9 [id number] Addison Garcia MD Main Office [address] [place] [address] 3 08/20/2020 12:21:57 08/20/2020 13:12:24 Hypothyroidism 42575660 E03.9 Fatigue 07097862 R53.83 [id number] Addison Garcia MD Main Office [address] [place] [address] 02/25/2021 12:10:33 02/25/2021 13:24:27 Hypothyroidism 01420013 E03.9 Ductal car cinoma in situ of breast 402904856 D05.11 [id number] Addison Garcia MD Main Office [address] [place] [id number] 3 03/30/2022 12:08:20 03/30/2022 13:02:46 Hypothyroidism 75495790 E03.9 Hyperlipidemia 91096898 E78.5 Loss of hair 735188213 L 65.9 Ductal car cinoma in situ of breast 163159122 D05.11 [id number] Addison Garcia MD Main Office [address] [place] [id number] 3 03/09/2023 12:16:58 03/09/2023 13:37:17 Hyperlipidemia 40415974 E78.5 Hypothyroidism 67018888 E03.9 Ductal car cinoma in situ of breast 548452512 D05.11 Fatigue 48430724 R53.83 Disorder o f vitamin B12 069929741 E53.8 [id number] Addison Garcia MD Main Office [address] [place] [address] 3 03/14/2024 13:00:27 03/14/2024 14:34:28 Hypothyroidism 33611375 E03.9 Loss of hair 958887699 L 65.9 Cholesterol screening 27 4825370 Z13.220 History of malignant neoplasm of breast 434212383 Z85.3 Vitamin D deficiency 347 61643 E55.9 [id number] Addison Garcia MD Main Office [address] [place] [id number] 3 04/09/2025 14:41:24 04/09/2025 15:33:37 Hypothyroidism 12568562 E03.9 Cobalamin deficiency 190 997158 E53.8 Therapeuti c drug monitoring assay 45107081 Z51.81 Vitamin D deficiency 347 08449 E55.9 History of malignant neoplasm of breast 199444993 Z85.3 Hyperlipidemia 19976134 E78.5 Health Concerns Section Related Observation LastModified by Organization Detai ls LastModified Time None Recorded Concern Status LastModified by Organization Details LastModified Time None Recorded Advance Directives Directive None Recorded Payers Insurance Date Sequence Insurance Name Policy Number Policy Diaz Covered Member ID Diaz Member ID Guarantor Name 04/09/2025 2 [employer] Gemini Blackburn [id number] Gemini Blackburn 04/09/2025 1 [place]IC[place] Gemini Blackburn [id number] Gemini Blackburn 04/09/2025 2 [employer] [place] (MEDICARE SUPPLEMENT) Gemini Blackburn [id number] Gemini Blackburn 04/09/2025 1 [place] (MEDICARE SUPPLEMENT) Gemini Blackburn [id number] Gemini Blackburn 04/09/2025 1 *SELF PAY* Mi adebayo Blackburn 04/09/2025 2 *SELF PAY* Mi adebayo Blackburn Notes Date Note Type Note Provider Name and Address Organization Details Recorded Time 02/25/2021 text/html Here today for follow-up.Blood pressure - checks regularly - 122 - 135/60.Energy level - has improved since last year.Times when will take a break in the day. Mentally needs to rest at times.No longer taking the mistletoe. Has a book - Curing Cancer through Nutrition. Suggested vitamins and food.Sees oncologist every 6 months. Saw in December and then will see them again in July.Mammogram - normal.Tried Herceptin and was sick for 2 weeks. Had a fever for 1 week. Had to take an antibiotic.Has gotten one Moderna vaccine.Latest Vitamin D is 85. Addison Garcia MD [address] [place], [address], [facility] 02/25/2021 17:57:17 03/30/2022 text/html Here today for checkup. HTN - checks blood pressure regularly at home. Typically will be ok. Occassionally will be higher. Hair is getting thin. Wondering how to improve this. Fractured arm on January 29. Tripped on a cord and fell on left side. Entire arm was affected. Had a cast on it. Then had another Xray. Sinuses - congested. Still dealing with allergies. Addison Garcia MD [address] [place], [address], [facility] 03/31/2022 00:22:57 03/09/2023 text/html Gemini is here today for follow up with her daughter. She had seen her oncologist in December 2022. She sees her every 6 months. She has her Ca 15 - 3 checked which is low. She also had a mammogram which was normal. She feels her legs are weaker than they were before. She doesn't walk as she should. Sleep - some nighs are better than others. On a good night she will sleep 11pm - 2 - 3am. Then she will urinate and she will then go back to bed and she will wake at 5 - 6am. Take her thyroid medication. Then she goes back to sleep until 7:30am. When she can't sleep then she will read on her phone. There are times when she is up until midnight. She recently pulled a muscle in her lower left leg. She checks her blood pressure 124 - 152/60s. She denies dizziness. Addison Garcia MD [address] [place], [address], [facility] 03/12/2023 19:45:31 03/14/2024 text/html Gemini is here today for follow up -She is accompanied by her daughter todayShrosemarie is concerned her hair is getting thinner. She is using a specific shampoo to help. Her scalp is sensitive. She feels her skin is sensitive overall.GI - when she doesn't take the enzyme, she has looser stool.She has no heart or lung concerns. Addison Garcia MD [address] [place], [address], [facility] 03/20/2024 22:34:44 04/09/2025 text/html Gemini is here today for follow up -HTN - she has a new blood pressure cuff. She will check it at home and it will be good. She has a PCP and her blood pressure is typically good there.She tried Butyrate and she got puffy from this. She got the wrong supplement and it had sodium in it.Overall her BM are good although she can get constipated at times.She will take Vitamin D spray and she is wondering where her B12 level is. She feels she could use more energy.Hair - she feels her hair is dry. Her skin is dry also. Her scalp can be itchy.She will break out when she eats pork.She just had a mammogram of her breast and it was normal.Her 68 year old son lives with her. He helps around the house also. Addison Garcia MD [address] [place], [address], [facility] 04/10/2025 08:39:51 OBGyn Episode No OBEpisode recorded.
--- OUTSIDE RECORDS SUMMARY | 2025-04-21 11:14 | XMS_ITS | Clinical Summary ---
Author Organization [facility] Address [address] [place] [address] Phone Care Team Providers Care Sewage Disposal Engineer Name Role Phone Romeo Underwood MD Primary Care Provider [phone] Allergies Active Allergy Reactions Criticality Noted Date Comments Azithromycin Diarrhea Low 12/27/2021 Medications MAGNESIUM ORAL Take 600 mg by mouth daily. Active cholecalciferol, vitamin D3, (VITAMIN D3 ORAL) Take 3,000 mg by mouth daily. Active levothyroxine 112 mcg tablet every 24 hours. Active docosahexaenoic acid/epa (FISH OIL ORAL) Take by mouth. Active ubidecarenone (COQ-10 ORAL) Take by mouth. Active VITAMIN E ORAL Take by mouth. Active cyanocobalamin 1,000 mcg Tablet Take 1,000 mcg by mouth daily. Active PARoxetine HCl (PAXIL) 10 mg tablet 01/07/2024 Active ascorbic acid, vitamin C, (VITAMIN C) 1,000 mg Tablet 1 Oral every day; Duration: 0 05/14/2024 Active ZINC ORAL Take by mouth. Active Active Problems Patient Care Coordination No te Formatting of this note migh t be different from the original. Primary Care: Romeo Underwood [place]: [place] [address] [place] [address] Other: Dr. Leora Sawant MD Problem Noted Date Diagnosed Date S/P right mastectomy 02/01/2023 History of right breast cancer 02/01/2023 Malignant neoplasm of upper- outer quadrant of right breast in female, estrogen receptor negative 01/09/2020 Cancer Staging:Clinical stage from 01/27/2020:Stage IIA(cT2(5), cN0(sn), cM0, G3, ER-, CO-, HER2+) - Signed by Leora Sawant MD on 01/27/2020 Mass of upper outer quadrant of right breast Abnormality of right breast on screening mammogr am 01/06/2020 Thyroid disease Encounters Date Type Department Care Team Description 03/24/2025 External Device Data [facility] ABSTRACTION Provider, Abstract 03/17/2025 External Device Data [facility] Provider, Abstract 03/11/2025 External Device Data [facility] Provider, Abstract 03/10/2025 External Device Data [facility] ABSTRACTION Provider, Abstract 02/26/2025 1:15 PM CDT Office Visit [facility] Breast Surgery [address] [place] [phone] Leora Sawant MD S/P right mastectomy (Primary Dx); History of right breast cancer 02/26/2025 11:59 AM CDT - 02/26/2025 11:59 PM CDT Hospital Encounter [facility] [address] [place] [address] Leora Sawant MD Discharge Disposition: Home or Self Care from Last 3 Months Family History Medical History Relation Name Comments Melanoma Brother 1 40's Prostate Cancer Brother 2 40's metastatic Heart Disease Mother Breast Cancer Neg Hx Ovarian Cancer Neg Hx Relation Name Status Comments Brother 1 40's Alive Brother 2 40's metastatic Alive Daughter Alive Father father of Lung issues Mother Son Alive Social History Tobacco Use Types Packs/Day Years Used Date Smoking Tobacco: Never Smokeless Tobacco: Never Alcohol Use Standard Drinks/Week Comments Never 0 (1 standard drink = 0.6 oz pur e alcohol) Feeling Safe Answer Date Recorded Within the last year, have y ou been afraid of your partner or ex-partner? No 02/21/2024 Within the last year, have y ou been humiliated or emotionally abused in other ways by your partner or ex-partner? No Within the last year, have y ou been kicked, hit, slapped, or otherwise physically hurt by your partner or ex-partner? No 02/21/2024 Within the last year, have y ou been raped or forced to have any kind of sexual activity by your partner or ex-partner? No 02/21/2024 Comments No Sex and Gender Information Value Date Recorded Sex Assigned at Not on file Legal Sex Female 4:17 PM CDT Gender Identity Not on file Sexual Orientation Not on file Last Filed Vital Signs Vital Sign Reading Time Taken Comments Blood Pressure 120/68 02/26/2025 1:15 PM CDT Pulse 55 07/25/2024 12:39 PM CDT Temperature 36.3 C (97.3 F) 07/25/2024 12:39 PM CDT Respiratory Rate 16 07/25/2024 12:39 PM CDT Oxygen Saturation 98% 07/25/2024 12:39 PM CDT Inhaled Oxygen Concentration - - Weight 59 kg (130 lb) 02/26/2025 1:15 PM CDT Height 157.5 cm (5' 2) 02/26/2025 1:15 PM CDT Body Mass Index 23.78 02/26/2025 1:15 PM CDT Plan of Treatment Upcoming Encounters Date Type Department Care Team (Late st Contact Info) Description 05/01/2025 11:00 AM CDT Office Visit [facility] On[facility] and H[facility]ology - [address] [facility] [address] [address] Logan Vázquez MD [address] [facility] [address] [place] [address] Health Maintenance Due Date Last Done Comments DTAP/TDAP/TD VACCINES (1 - Tdap) 1954 Traditional Medicare (ACO) Annual Wellness Visit 06/14 PNEUMOCOCCAL VACCINE 50+ YEARS (1 of 1 - PCV) 06/14/19 86 ZOSTER VACCINE (1 of 2) 1986 RSV VACCINE (60+ or ) (1 - 1-dose 75+ series) 2011 OSTEOPOROSIS SCREENING 08/13/2023 08/13/2018 INFLUENZA VACCINE (#1) 2025 Medical Devices Implanted Type Area Heat Pump Installer Device Identifier Shelf Expiration Date Model / Serial / Lot Braid Cutter Clip Surgiclip Ii Zach 9.75in [id number] - [id number] Implanted:Qty: 1 on 01/22/2020 by Leora Sawant MD at [facility] [place] Clip Right: Axilla [employer] - COVIDIEN 09/20/2024 [id number] / / [id number] Hemostatic Surgicel 4x8in 1950 - [id number] Implanted:Qty: 2 on 01/22/2020 by Leora Sawant MD at [facility] [place] Hemostatic Right: Breast [employer] 06/21/20231951 / / [id number] Procedures Procedure Name Priority Date/Time Associated Diagnosis Comments MAMMO DIAG UNI LEFT 3D LANDON W OR WO CAD Routine 02/26/2025 12:13 PM CDT History of right breast cancer S/P right mastectomy from Last 3 Months Results * MAMMO 3D LANDON DIAGNOSTIC UNI LT W OR WO CAD (02/26/2025 12:13 PM CDT) Anatomical Region Laterality Modality Breast Left Mammography 02/26/2025 12:1 3 PM CDT Impressions 02/26/2025 12:23 PM CDT IMPRESSION: No suspicious findings to suggest malignancy in the left breast. Annual mammography is recommended. OVERALL FINAL ASSESSMENT: BI-RADS CATEGORY 1 - Negative [facility] 02/26/2025 12:23 PM CDT LEFT BREAST FULL-FIELD DIGITAL DIAGNOSTIC MAMMOGRAM WITH CAD WITH 3D TOMOSYNTHESIS DATE: 02/26/2025 12:13 PM HISTORY: Right breast cancer status post right mastectomy. No current breast complaint. TECHNIQUE: Full-field digital craniocaudal, mediolateral and mediolateral oblique projections of the left breast were obtained. Low-dose full-field digital breast tomosynthesis examination was performed with 2D and 3D acquisitions. Examination is read in conjunction with computer aided detection. COMPARISON: 02/21/2024 and older. BREAST COMPOSITION: There are scattered areas of fibroglandular density. FINDINGS: No suspicious mass, suspicious microcalcifications, or architectural distortion is identified in the left breast. Computer aided detection was used in the interpretation of this examination. Leora Sawant MD MAMMO ORDERABLES Final R esult from Last 3 Months Insurance MEDICARE PART A AND B [employer] [facility] Member Subscriber Plan / Payer (Ef fective 2010-Present) Name:Gemini Blackburn Relation to Subscriber:Self Name:Gemini Blackburn Payer ID:Not on file Group ID:[id number] Type:RX Medicare Part D Address: [address] RX [employer] PLANS (INTERNAL) [facility] MEDICARE PART A AND B Advance Directives For more information, please contact: [phone] * Full Code (Latest Code Status on File) Date Activated Date Inactivated Comments 01/22/2020 7:45 PM 01/23/2020 2:46 PM Care Teams Sewage Disposal Engineer Relationship Specialty Start Date End Date Romeo Underwood MD [address] [place] [address] PCP - General Family Practice 01/06/20
--- OUTSIDE RECORDS SUMMARY | 2025-04-21 11:14 | XMS_ITS | Patient Health Record ---
Author Organization [facility] Address [address] [place] [address] Care Team Providers Care Slagger Name Role Phone Dr. Shashank Underwood Primary Care Provider [phone] Elisa Andrade Unavailable [phone] Migration, Provider Unavailable Unavailable Allergies Allergen (clinical drug ingredient) Drug/Non Drug Allergy documented on EMR Reaction Allergy Type Onset Date Status azithromycin Zithromax diarrhea Drug Allergy 12/27/2021 Act latasha Results Component Value Reference Range Notes AUDIT-C Reviewed date:05/14/2024 12:00:00 AM Interpretation: Performing Lab: Notes/Report: How many standard drinks con taining alcohol do you have on a typical day? N/A How often do you have 6 or more drinks on 1 occasion N ever How often do you have a drink containing alcohol Never Total Score 0 Patient Health Questionnaire (PHQ9) Reviewed date:05/14/2024 12:00:00 AM Interpretation: Performing Lab: Notes/Report: Feeling bad about yourself o r that you are a failure or have let yourself or your family down 0 Feeling down, depressed, or hopeless 1 Feeling tired or having little energy 1 If you checked off any probl ems, how difficult Not difficult at all have these problems made it for you to do your work, take care of things at home, or get along with other people? 0 Little interest or pleasure in doing things 1 Moving or speaking so slowly that other people could have noticed or the opposite being so figety or restless that you have been moving around a lot more than usual 0 Poor appetite or overeating 1 Thoughts that you would be b parish off , or of hurting yourself 0 Trouble concentrating on thi ngs, such as reading the newspaper or watching television 0 Trouble falling or staying asleep, or sleeping too muc h 1 Iron and TIBC Reviewed date:11/11/2024 02:14:15 PM Interpretation: Performing Lab: Notes/Report: Triiodothyronine (T3) Reviewed date:11/11/2024 02:14:01 PM Interpretation: Performing Lab: Notes/Report: TSH Reviewed date:11/11/2024 02:14:41 PM Interpretation: Performing Lab: Notes/Report: CBC With Differential/Platel et Reviewed date:11/11/2024 02:14:54 PM Interpretation: Performing Lab: Notes/Report: Vitamin D, 25-Hydroxy Reviewed date:11/14/2024 02:53:29 PM Interpretation: Performing Lab: Notes/Report: Lipid Panel Reviewed date:11/11/2024 02:15:31 PM Interpretation: Performing Lab: Notes/Report: Comp. Metabolic Panel (14) Reviewed date:11/11/2024 02:14:30 PM Interpretation: Performing Lab: Notes/Report: X ray : Pelvis Reviewed date:03/27/2025 02:23:26 PM Interpretation: Performing Lab: Notes/Report: X ray : SI joint, left Reviewed date:03/03/2025 02:23:10 PM Interpretation: Performing Lab: Notes/Report: X ray : LS Spine Reviewed date:03/27/2025 02:23:20 PM Interpretation: Performing Lab: Notes/Report: Reason For Referral Reason Patient requests PT at [place] Diagnosis 1 SI (sacroiliac) pain (M53.3) Diagnosis 2 Left sciatic nerve p ain (M54.32) Referral Organization [facility] Referring Provider First Name Dr. Encarnacion Referring Provider Last Name Kj Referring Provider Speciality Pediatrics Referred Provider Specialty Physical The rapist General Notes Monica Laguna 08:55:29 AM CDT >Faxed to [place] Referral Priority Routine Medications Medication SIG (Take, Route, Frequency, Duration) Notes Start Date End Date Status B-Complex oral; Duration: 0 *Pick strength-form from [employer] for eRX* 05/14/2024 Active PARoxetine HCl 10 MG Tablet 1 Oral every day; Duration: 90 days Active Magnesium 200 MG Tablet 3 Oral every day; Duration: 0 05/14/2024 Active Levothyroxine 100 mcg Capsule(s) 1 BY MOUTH every day; Duration: 0 *Reorder from [employer] for eRx and Interaction Alerts* 05/09/2023 Active Co Q-10 oral; Duration: 0 *Pick strength-form from [employer] for eRX* 05/09/2023 Active Vitamin D3 50 MCG (2000 UT) Capsule 1 Oral every day; Duration: 0 05/14/2024 Active Fish Oil oral; Duration: 0 *Pick strength-form from [employer] for eRX* 05/09/2023 Active Vitamin C 1000 MG Tablet 1 Oral every day; Duration: 0 05/14/2024 Active Azelaic Acid 15 % gel topical; Duration: 30 04/12/2021 Not-Taking Diclofenac Sodium 1 % Gel 2 g Externally 4 times a day; Duration: 30 days As needed 11/07/2024 Not-Taking Immunizations Vaccine Route Administration Date Status Comme nts Tdap IM Intramuscular 05/09/2023 Administered ,sourc ename : New immunization record ,immstatus : Complete Influenza, high-dose seasonal, quadrivalent, preservative free >65 yrs IM Intramuscular 08/21/2023 Administered ,sourcename : Historical information -source unspecified ,immstatus : Complete Social History Social History Additional Details Category Social Info Options Details Migrated Social History Migrated Social History Employment:Retired , Additional comments :: ,notes : Enjoys gardening and landscaping , Living arrangements:House ,notes : currently living with son and [id number] Problems Problem Type SNOMED Code ICD Code Onset Dates Problem Status W/U Status Risk Notes Problem Synovial cyst of left popliteal space (M71.22) Active confirmed Problem Elevated blood pressure reading without diagnosis of hypertension (344841981) Blood pressure elevated without history of HTN (R03.0) Active confirmed Problem Anemia (290694158) Anemia, unspecified (D64.9) 024 Active confirmed Problem Diverticular disease of both small and large intestine without perforation or abscess (891906339) Diverticulosis of both small and large intestine without perforation or abscess without bleeding (K57.50) Active confirmed Problem Allergic arthritis (45975491) Other specified arthritis, unspecified site (M13.80) Active confirmed Problem Disorder of bone (68730753) Other specified disorders of bone density and structure, unspecified site (M85.80) Active confirmed Problem Osteochondropathy (48264178) Disorder of bone density and structure, unspecified (M85.9) Active confirmed Problem 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, 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 Problem Fatigue (82353421) Other fatigue (R53.83) Active confirmed Problem Abnormal glucose level (953960891) Other abnormal glucose (R73.09) Active confirmed Problem Closed fracture of head of radius (15259104) Nondisplaced fracture of head of left radius, initial encounter for closed fracture (S52.125A) Active confirmed Problem Chronic sinusitis (41011353) Other chronic sinusitis (J32.8) Inactive confirmed Problem Shoulder joint pain (069297344) Pain in left shoulder (M25.512) Inactive confirmed Problem Bicipital tenosynovitis (19320629) Bicipital tendinitis, right shoulder (M75.21) Inactive confirmed Problem Transient insomnia (407887902) Transient disorder of initiating or maintaining sleep (307.41) Problem resolved confirmed Problem Chronic sinusitis (96357128) Other chronic sinusitis (473.8) Problem resolved confirmed Problem Diverticulosis of colon (finding) (123676408) Diverticulosis of colon (without mention of hemorrhage) (562.10) Problem resolved confirmed Problem Pain in thoracic spine (949534562) Pain in thoracic spine (724.1) Problem resolved confirmed Problem Shoulder joint pain (781985021) Pain in joint, shoulder region (719.41) Problem resolved confirmed Problem Cervicalgia (41504890) Cervicalgia (723.1) Problem resolved confirmed Problem Jaundice (11407438) Jaundice, unspecified, not of (782.4) Problem resolved confirmed Problem Cough (90090657) Cough (786.2) 12/12/2 017 Problem resolved confirmed Problem Requires influenza virus vaccination (722693740) Need for prophylactic vaccination and inoculation, Influenza (V04.81) Problem resolved confirmed Problem General examination of patient (190318189) Routine general medical examination at health care facility (V70.0) Problem resolved confirmed Problem Influenza caused by Influenza A virus (854143257) Influenza due to identified novel influenza A virus with other manifestations (488.89) Problem resolved confirmed Problem Candidal vulvovaginitis (79281892) Candidiasis of vulva and vagina (B37.3) Problem resolved confirmed Problem Acute serous otitis media of left ear (4907687360022541) Acute serous otitis media, left ear (H65.02) Problem resolved confirmed Problem Acute sinusitis (28633016) Acute sinusitis, unspecified (J01.90) Problem resolved confirmed Problem Acute vaginitis (18356178) Acute vaginitis (N76.0) Problem resolved confirmed Problem Painful micturition (26048077) Painful micturition, unspecified (R30.9) Problem resolved confirmed Problem Urgent desire to urinate (52402268) Urgency of urination (R39.15) Problem resolved confirmed Problem Cognitive disturbance (332888836) Other symptoms and signs involving cognitive functions and awareness (R41.89) Problem resolved confirmed Problem Dizziness and giddiness (273901830) Dizziness and giddiness (R42) Problem resolved confirmed Problem Syncope and collapse (041858340) Syncope and collapse (R55) Problem resolved confirmed Problem Cough (finding) (43813229) Cough, unspecified (R05.9) Problem resolved confirmed Problem Dysuria (18984207) Dysuria (R30.0) 017 Problem resolved confirmed Problem Jaundice (57441145) Unspecified jaundice (R17) Problem resolved confirmed Problem Abdominal pain (15087218) Unspecified abdominal pain (R10.9) 024 Problem resolved confirmed Problem Pelvic and perineal pain (923932943) Pelvic and perineal pain (R10.2) 022 Problem resolved confirmed Problem Acute cystitis (23380475) Acute cystitis without hematuria (N30.00) 017 Problem resolved confirmed Problem Pain in thoracic spine (820558982) Pain in thoracic spine (M54.6) 019 Problem resolved confirmed Problem Cervicalgia (32618820) Cervicalgia (M54.2) 019 Problem resolved confirmed Problem Pain of left hip joint (finding) (542729471364053) Pain in left hip (M25.552) 016 Problem resolved confirmed Problem Allergic rhinitis (44095445) Allergic rhinitis, unspecified (J30.9) 017 Problem resolved confirmed Problem Allergic rhinitis (07908619) Other allergic rhinitis (J30.89) 017 Problem resolved confirmed Problem influenza due to influenza a virus with upper respiratory signs (disorder) (386137698113914) Influenza due to identified novel influenza A virus with other respiratory manifestations (J09.X2) 018 Problem resolved confirmed Problem Primary insomnia (5106706) 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) 016 Problem resolved confirmed Problem History of arthritis (374530316) Personal history of arthritis (V13.4) 016 Problem resolved confirmed Problem Vaccination needed (055404310844599) Need for prophylactic vaccination and inoculation, Other viral diseases (V04.89) 018 Problem resolved confirmed Problem Abdominal pain (finding) (68132245) Abdominal pain, unspecified site (789.00) 018 Problem resolved confirmed Problem 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.10) 018 Problem resolved confirmed Problem Disorder of bone and articular cartilage (disorder) (214581139) Disorder of bone and cartilage, unspecified (733.90) 018 Problem resolved confirmed Problem Arthralgia of the pelvic region and thigh (696315648) Pain in joint, pelvic region and thigh (719.45) 016 Problem resolved confirmed Problem Acquired renal cystic disease (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) Acquired cyst of kidney (593.2) 018 Problem resolved confirmed Problem 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) Other chronic nonalcoholic liver disease (571.8) 018 Problem resolved confirmed Problem Midline cystocele (333938930) Cystocele without mention of uterine prolapse, midline (618.01) 018 Problem resolved confirmed Problem Acute sinusitis (disorder) (17587404) Other acute sinusitis (461.8) 016 Problem resolved confirmed Problem Dysfunction of eustachian tube (28417223) Dysfunction of Eustachian tube (381.81) 016 Problem resolved confirmed Problem Vitamin D deficiency (58374736) Unspecified vitamin D deficiency (268.9) 018 Problem resolved confirmed Problem Mild major depression, single episode (47388176) Major depressive disorder, single episode, mild (296.21) 016 Problem resolved confirmed Problem Eruption of skin (983902567) Rash and other nonspecific skin eruption (782.1) 019 Inactive confirmed Problem Normal body mass index (10677178) Body mass index (BMI) 24.0-24.9, adult (Z68.24) 023 Active confirmed Problem BMI 25-29 - overweight (149164730) Body mass index (BMI) 25.0-25.9, adult (Z68.25) 024 Active confirmed Problem Spinal stenosis of lumbar region (84177980) Spinal stenosis, lumbar region without neurogenic claudication (M48.061) 024 Active confirmed Problem Personal history of primary malignant neoplasm of breast (043548877) Personal history of malignant neoplasm of breast (Z85.3) 024 Active confirmed Problem Vaccination given (940093820) Encounter for immunization (Z23) 023 Active confirmed Problem Adult health examination (319465774) Encounter for general adult medical examination without abnormal findings (Z00.00) 023 Active confirmed Problem Malaise (937191384) Other malais e (R53.81) 022 Active confirmed Problem Bradycardia (36001220) Bradycardia, unspecified (R00.1) 01/27/2 022 Active confirmed Problem 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, unspecified (Q61.9) Active confirmed Problem Cystocele (830984199) Cystocele, unspecified (N81.10) Active confirmed Problem 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) Active confirmed Problem Actinic keratosis (223590) Actinic keratosis (L57.0) Active confirmed Problem Fatty liver (741301772) Fatty (change of) liver, not elsewhere classified (K76.0) Active confirmed Problem Generalized anxiety disorder (23051284) Generalized anxiety disorder (F41.1) Active confirmed Problem Vitamin D deficiency (53606035) Vitamin D deficiency, unspecified (E55.9) Active confirmed Problem Hypothyroidism (19641100) Hypothyroidism, unspecified (E03.9) Active confirmed Problem Mild cognitive disorder (613422727) Mild cognitive impairment, so stated (G31.84) Problem resolved confirmed Problem COVID-19 (472649556) COVID-19 (U07.1) 15/12 Problem resolved confirmed Problem Gynecological examination abnormal (107102763445103) Encounter for gynecological examination (general) (routine) with abnormal findings (Z01.411) 018 Problem resolved confirmed Problem Weakness (37327201) Weakness (R53.1) 0410/23 016 Problem resolved confirmed Problem Frequency of micturition (998325008) Frequency of micturition (R35.0) Problem resolved confirmed Problem Eruption of skin (858784895) Rash and other nonspecific skin eruption (R21) 019 Problem resolved confirmed Problem Cough (90346771) Cough (R05) Problem resolved confirmed Vital Signs Heart Rate 65 /min 03/02/2025 Temperature 97.1 degrees Fahrenheit 03/02/2025 Respiratory Rate 22 /min 05/14/2024 Height-cm 153.67 cm 03/02/2025 Blood pressure diastolic 70 mm Hg 03/02/2025 Oximetry 97 % 03/02/2025 Weight-kg 59.06 kg 03/02/2025 Height 60.50 in 03/02/2025 Blood pressure systolic 118 mm Hg 03/02/2025 Weight 130.2 lbs 03/02/2025 BMI 25.01 kg/m2 03/02/2025 Encounters Encounter Location Date Provider Diagnosis [address] [address] 05/14/2024 Dr. Shashank Underwood Other chronic sinusitis J32.8 ; Cough, unspecified R05.9 ; Acute sinusitis, unspecified J01.90 ; Unspecified abdominal pain R10.9 ; Hypothyroidism, unspecified E03.9 ; Generalized anxiety disorder F41.1 ; Bicipital tendinitis, right shoulder M75.21 ; Acute serous otitis media, left ear H65.02 ; Pain in left shoulder M25.512 ; Body mass index (BMI) 25.0-25.9, adult Z68.25 and Encounter for general adult medical examination without abnormal findings Z00.[address] [address] 11/07/2024 Dr. Shashank Underwood Primary generalized (osteo)arthritis M15.0 ; Anemia, unspecified D64.9 ; Vitamin D deficiency, unspecified E55.9 ; Hypothyroidism, unspecified E03.9 ; Personal history of malignant neoplasm of breast Z85.3 ; Blood pressure elevated without history of HTN R03.0 and Synovial cyst of left popliteal space M71.[address] [address] 03/02/2025 Elisa Andrade SI (sacroiliac) pain M53.3 ; Left sciatic nerve pain M54.32 and Status post fall Z91.[address] [address] 09/20/2024 Provider Migration [address] [address] 09/21/2024 Provider Migration [address] [address] 03/03/2025 Elisa Andrade [address] [address] 03/05/2025 Dr. Shashank Underwood SI (sacroiliac) pain M53.3 and Left sciatic nerve pain M54.32 Assessments Encounter Date Diagnosis (ICD Code) Assessment Notes Treatment Notes Treatment Clinical Notes Section Notes 03/05/2025 SI (sacroiliac) pain (ICD-10 - M53.3) 03/05/2025 Left sciatic nerve pain (ICD-10 - M54.32) 11/07/2024 Primary generalized (osteo)arthritis (ICD-10 - M15.0) 05/14/2024 Hypothyroidism, unspecified (ICD-10 - E03.9) 05/14/2024 Generalized anxiety disorder (ICD-10 - F41.1) 05/14/2024 Acute serous otitis media, left ear (ICD-10 - H65.02) 05/14/2024 Acute sinusitis, unspecified (ICD-10 - J01.90) 05/14/2024 Other chronic sinusitis (ICD-10 - J32.8) 05/14/2024 Pain in left shoulder (ICD-10 - M25.512) 05/14/2024 Bicipital tendinitis, right shoulder (ICD-10 - M75.21) 05/14/2024 Unspecified abdominal pain (ICD-10 - R10.9) 05/14/2024 Encounter for general adult medical examination without abnormal findings (ICD-10 - Z00.00) 05/14/2024 Cough, unspecified (ICD-10 - R05.9) 05/14/2024 Body mass index (BMI) 25.0-25.9, adult (ICD-10 - Z68.25) 03/02/2025 SI (sacroiliac) pain (ICD-10 - M53.3) 03/02/2025 Left sciatic nerve pain (ICD-10 - M54.32) - Pain may be related to SI joint or lower back impingement affecting the sciatic nerve.- X-ray of lumbar spine, pelvis, and SI joint to rule out abnormalities. - Physical therapy referral contingent on x-ray results per PT request. - Continue ice/heat as needed, rest, and use of Ibuprofen/Tyleno l as needed. 11/07/2024 Anemia, unspecified (ICD-10 - D64.9) 03/02/2025 Status post fall (ICD-10 - Z91.81) 11/07/2024 Vitamin D deficiency, unspecified (ICD-10 - E55.9) 11/07/2024 Hypothyroidism, unspecified (ICD-10 - E03.9) 11/07/2024 Personal history of malignant neoplasm of breast (ICD-10 - Z85.3) 11/07/2024 Blood pressure elevated without history of HTN (ICD-10 - R03.0) 11/07/2024 Synovial cyst of left popliteal space (ICD-10 - M71.22) Plan Of Treatment Next Appt Details Provider Name:Dr. Shashank rodriguez, 05/13/2025 02:15:00 PM, [place], [address], [phone] Insurance Providers Payer Name Payer Address Payer Phone Subscriber Number Group Number Insured Name Patient Relationship to Insured Coverage Start Date Coverage End Date [employer] R[employer] [address] [place] [phone] [id number] Blackburn, Gemini Self - patient is the insured 3 [facility] [address] [place] [address] [id number] Blackburn, Gemini Self - patient is the insured 5 [employer] B [address] [place] [address] [id number] Blackburn, Gemini Self - patient is the insured 3 Medical (General) History Medical History History ICD Code Synovial cyst of left popliteal space M7 1.22 Surgical History Surgery Date(Month/Year) (36489) KNEE ARTHROSCOPY DX ,notes : Dr. Baumann (70864) REMOVAL OF GALLBLADDER (99176) CORRECTION OF BUNION ,notes : re moval (37651) CARDIOVASCULAR STRESS TEST ,note s : negative 100% Masectomy ,notes : R masectomy with 1 ly mph node removal. 01/2020 (68655) REVISE HIP JOINT REPLACEMENT LEFT mammogram - negative, repeat yearly 02/26/2025
[2025-04-21 11:19] LABS: Hematocrit 42.6 % (37.0-47.0); Hemoglobin 13.7 g/dL (12.0-15.0); Immature Granulocyte Percent A 0.2 % (0-0.5); Lymphocytes Absolute Auto 1.53 K/mm3 (0.9-3.2); Mean Corpuscular HGB Conc 32.2 g/dl (32-36); Mean Corpuscular Hemoglobin 30.7 pg (26-34); Mean Corpuscular Volume 95.5 fl (80-100); Nucleated Red Blood Cells Absolute Auto 0.000 K/mm3 (0.0-0.012); Nucleated Red Blood Cells Perc 0.0 % (0.0-0.2); Platelet Count Result 271 k/mm3 (150-375); Red Blood Count 4.46 M/mm3 (4.2-5.4); White Blood Count 5.2 K/mm3 (4.5-10.0)
[2025-04-21 12:40] LABS: Alanine Aminotransferase 20 U/L (6-35); Albumin Level 4.7 g/dL (3.5-5.1); Alkaline Phosphatase 77 U/L (38-126); Anion Gap 8 mmol/L (4-12); Aspartate Amino Transferase 38 U/L (14-36); Bilirubin,Total 0.6 mg/dL (0.2-1.3); Blood Urea Nitrogen 25 mg/dL (7-17); Calcium 10.0 mg/dL (8.4-10.2); Carbon Dioxide 27 mmol/L (22-30); Chloride 106 mmol/L (98-107); Estimated Glomerular Filt Rate > 60; Glucose 88 mg/dL (65-110); Potassium 4.6 mmol/L (3.4-5.0); Sodium 141 mmol/L (137-145); Total Protein 7.4 g/dL (6.3-8.2)
[2025-04-23 01:39] LABS: CA 15-3. 5 U/mL (<32)
== END 2025-04-21 10:59 | disposition home or self-care (01) ==
PROVIDERS: PCP Pediatrics; Visit Provider Internal Medicine Hematology & Oncology
DX: C50.411 Malignant neoplasm of upper-outer quadrant of right female breast (principal); Z17.1 Estrogen receptor negative status [ER-]
CPT/HCPCS: 36415; 80053; 85025; 86300